=== PATIENT | male | born 1945 | race Caucasian/White ===

== ENCOUNTER 2020-06-10 08:44 | Day surgery (SDC) | payer MEDICARE, SELFPAY ==
--- NOTE | 2020-06-09 08:54 | P.CONAN_ITS ---
Documented by User: Jenny Alvarado 06/09/20 08:55 HPI - Anesthesia Eval Consult details Narrative: 75yo M for Colonoscopy [facility] Active Problems Active Problems: All Active Problems (Updated 05/22/20 @ 08:37 by Ta Mcneill [facility]) Dyslipidemia (Acute) Plantar fasciitis of right foot (Acute) Bilateral leg pain (Acute) Past Medical History Medical History Dyslipidemia Hypothyroid Prostate cancer Family History Family History Father Emphysema of lung Mother Lung cancer Surgical History Surgical History H/O prostate biopsy Hx of tonsillectomy Social History Social History Alcohol intake: current Alcohol intake frequency: holidays/special occasions only Smoking Status: Never smoker Use of substances other than those prescribed or required for medical reasons: No Advance Directives: No Advance Directives Information Provided: Yes Meds Allergies Allergy/AdvReac Type Severity Reaction Status Date / Time No Known Allergies Allergy Verified 05/22/20 09:41 [No Known Allergies*] Home Medications Medication Instructions Recorded Confirmed Last Taken Type atorvastatin 80 mg tablet 80 mg PO BEDTIME 12/27/19 05/22/20 Unknown History Exam Exam Date and Time: June 09, 2020 0854 Pertinent Lab Results Pertinent Lab Results: Laboratory Tests 11/29/19 08:24 Sodium 143 Potassium 4.7 Chloride 108 BUN 26 H Creatinine 1.11 Assessment and Plan Assessment Anesthesia Assessment: Chart Reviewed Documented by User: Deborah Lorenz 06/10/20 10:16 PMFSH Past Medical History Medical History Dyslipidemia Hypothyroid Prostate cancer Family History Family History Father Emphysema of lung Mother Lung cancer Family history of problems with anesthesia: No Surgical History Surgical History H/O prostate biopsy Hx of tonsillectomy History of Problems with Anesthesia: No Social History Social History Alcohol intake: current Alcohol intake frequency: holidays/special occasions only Smoking Status: Never smoker Use of substances other than those prescribed or required for medical reasons: No Advance Directives: No Advance Directives Information Provided: Yes Meds Allergies Allergy/AdvReac Type Severity Reaction Status Date / Time No Known Allergies Allergy Verified 05/22/20 09:41 [No Known Allergies*] Home Medications Medication Instructions Recorded Confirmed Last Taken Type atorvastatin 80 mg tablet 80 mg PO BEDTIME 12/27/19 05/22/20 Unknown History Exam Height,Weight and Vital Signs: Vital Signs Temp Pulse Resp BP Pulse Ox 06/10/20 09:49 97.0 F 74 16 144/64 H 97 Airway Mallampati Class: III TM Dist: >3cm Neck ROM: Full Heart: RRR Lungs: CTAB Assessment and Plan Assessment Anesthesia Assessment: Anesthesia Plan Discussed and Chart Reviewed Final Anesthetic Review NPO: Yes ASA Class: II Final Preanesthetic Review: No Changes in Pt Med Stat, Meds/Allgs Chart Reviewed, Consent Obtained/Reviewed and Anes Risks/Benef Reviewed Patient Risk: Low Procedure Risk: Low Assessment/Block/Sedation in SS: Assess/Block/Sedation-SS Anesthetic Plan Anesthetic Plan: MAC: Disposition: Standard PACU
[2020-06-09 12:26] VITALS: BMI 32.4
[2020-06-10 09:49] VITALS: BP 144/64; PULSE 74; RESP 16; TEMP 36.1; O2SAT 97
[2020-06-10] MEDS: Lactated Ringers 1,000 ML 100 ML IVCONT (09:59)
--- NOTE | 2020-06-10 10:38 | MHC.SHP ---
Pre-Procedural Eval Section A The patient is an INPATIENT: No Changes since office visit: No Cold of Flu in the past 2 weeks, No New Medical Problems, No Changes in Medication and No Patient answered all questions The History & Physical has been completed within 30 days and I have reviewed it.: Yes Section B Chief Complaint: bleeding Allergies: Allergies Allergy/AdvReac Type Severity Reaction Status Date / Time No Known Allergies Allergy Verified 05/22/20 09:41 [No Known Allergies*] Plan I have reviewed the history and physical and performed a pertinent physical examination on my patient. No changes have occurred unless specified.
[2020-06-10 11:05] VITALS: BP 94/63; PULSE 69; RESP 12; TEMP 36.9; O2SAT 97
--- NOTE | 2020-06-10 11:05 | PM.OP ---
Brief Operative Note Date of Service: 06/10/20 Pre-op diagnosis: rectal bleeding Post-op diagnosis: same (colon polyps, proctitis) Procedure: colonoscopy Surgeon: Edmund Bowman Anesthesia: MAC Estimated blood loss (mL): 5 Pathology: other (polypls x3, rectal biopsies) Condition: stable Disposition: PACU
[2020-06-10 11:20] VITALS: BP 118/63; PULSE 62; RESP 12; TEMP 36.9; O2SAT 98
--- NOTE | 2020-06-10 12:30 | OP_ITS ---
SURGEON: Edmund Bowman MD INDICATIONS: Rectal bleeding. PREOPERATIVE DIAGNOSIS: POSTOPERATIVE DIAGNOSIS: PROCEDURE PERFORMED: Colonoscopy to the terminal ileum with snare polypectomy and biopsy. ESTIMATED BLOOD LOSS: COMPLICATIONS: ANESTHESIA: ASSISTANTS: SPECIMENS: MEDICATIONS: Monitored anesthesia care. DESCRIPTION OF PROCEDURE: History and physical performed. The risks and benefits of the procedure were explained to the patient. Informed consent was obtained. The patient was placed in the left lateral decubitus position. A digital rectal exam was performed and was found to be normal. The Olympus pediatric video colonoscope was introduced into the rectum and advanced to the cecum without difficulty. The cecum was identified by transillumination, palpation, and identification of ileocecal valve. Examination was performed and the scope was removed. He tolerated the procedure well and was taken to recovery area in stable condition. FINDINGS: The terminal ileum was normal. The visualized colonic mucosa was normal. The quality of the prep was good. Three polyps were identified and removed with a snare. These were located at 80 cm, 70 cm, and 50 cm, none were greater than 10 mm. 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 Biopsies were obtained from the mucosa. Retroflexed examination was normal. IMPRESSION: 1. Colon polyps. 2. Radiation proctitis. RECOMMENDATIONS: Follow up the biopsy results. MD NAKITA Hinson/RAHEL / [id number]
== END 2020-06-10 11:39 | disposition home or self-care (01) ==
PROVIDERS: PCP Nurse Practitioner Family; Visit Provider Internal Medicine Gastroenterology
PROC: 0DJD8ZZ Inspection of Lower Intestinal Tract, Via Natural or Artificial Opening Endoscopic (ICD-10-PCS; CPT 45378; principal; 2020-06-10 09:50)
DX: K62.5 Hemorrhage of anus and rectum (principal); D12.4 Benign neoplasm of descending colon; D12.5 Benign neoplasm of sigmoid colon; K51.40 Inflammatory polyps of colon without complications; K62.7 Radiation proctitis; Z85.46 Personal history of malignant neoplasm of prostate; E03.9 Hypothyroidism, unspecified; Z79.899 Other long term (current) drug therapy
CPT/HCPCS: 45385; 45380; 88305

== ENCOUNTER 2020-06-20 06:59 | Outpatient (REF) | payer MEDICARE, SELFPAY ==
[2020-06-20 11:58] LABS: Alanine Aminotransferase 16 U/L (0-40); Albumin Level 3.6 g/dL (3.5-5.0); Alkaline Phosphatase 95 U/L (39-117); Anion Gap 13 (12-20); Aspartate Amino Transferase 18 U/L (5-37); Bilirubin Total < 0.2 mg/dL (0.0-1.0); Blood Urea Nitrogen 28 mg/dL (9-16); Calcium 8.1 mg/dL (8.4-10.2); Carbon Dioxide 24 mmol/L (22-29); Chloride 111 mmol/L (96-108); Cholesterol 109 mg/dL; Estimated Glomerular Filt Rate > 60; Glucose Fasting 85 mg/dL (60-99); HDL Cholesterol 30 mg/dL; LDL Cholesterol Calculated 61 mg/dl; Potassium 4.5 mmol/L (3.3-5.1); Sodium 143 mmol/L (135-145); Total Protein 5.8 g/dL (6.5-8.0); Triglycerides 91 mg/dL; Uric Acid 6.5 mg/dL (3.4-7.0)
[2020-06-20 12:07] LABS: TSH reflex Free T4 3.26 uIU/mL (0.32-4.0)
== END 2020-06-20 07:00 | disposition home or self-care (01) ==
LOC: HO.HMGCLDS 06:59
PROVIDERS: PCP Nurse Practitioner Family; Visit Provider Nurse Practitioner Family
DX: E03.9 Hypothyroidism, unspecified (principal); E78.5 Hyperlipidemia, unspecified; M72.2 Plantar fascial fibromatosis; M79.604 Pain in right leg; M79.605 Pain in left leg
CPT/HCPCS: 36415; 80053; 80061; 82550; 84443; 84550

== ENCOUNTER 2020-07-30 06:31 | Outpatient (REF) | payer MEDICARE, SELFPAY ==
[2020-07-30 12:02] LABS: Alanine Aminotransferase 20 U/L (0-40); Albumin Level 3.6 g/dL (3.5-5.0); Alkaline Phosphatase 117 U/L (39-117); Anion Gap 11 (12-20); Aspartate Amino Transferase 15 U/L (5-37); Bilirubin Total 0.3 mg/dL (0.0-1.0); Blood Urea Nitrogen 30 mg/dL (9-16); Calcium 8.7 mg/dL (8.4-10.2); Carbon Dioxide 24 mmol/L (22-29); Chloride 111 mmol/L (96-108); Estimated Glomerular Filt Rate > 60; Glucose Random 96 mg/dL (60-115); Potassium 4.4 mmol/L (3.3-5.1); Sodium 142 mmol/L (135-145); Total Protein 5.7 g/dL (6.5-8.0)
== END 2020-07-30 06:32 | disposition home or self-care (01) ==
LOC: HO.HMGCLDS 06:31
PROVIDERS: PCP Nurse Practitioner Family; Visit Provider Nurse Practitioner Family
DX: R74.8 Abnormal levels of other serum enzymes (principal)
CPT/HCPCS: 36415; 80053; 82550

== ENCOUNTER 2021-08-03 06:45 | Day surgery (SDC) | payer MEDICARE, SELFPAY ==
[2021-07-28 14:08] VITALS: BMI 29.8
[2021-07-28 14:17] VITALS: BMI 29.8
--- NOTE | 2021-07-31 08:58 | P.CONAN_ITS ---
Documented by User: Jenny Alvarado NP 07/31/21 09:00 HPI - Anesthesia Eval Consult details Narrative: 76yo M for Left Cataract Extraction IOL Insertion PCP cleared No previous cataract on record [facility] Active Problems Active Problems: All Active Problems (Updated 07/28/21 @ 16:47 by Ta Mcneill [facility]) Pre-op evaluation (Acute) Bilateral leg pain (Acute) Plantar fasciitis of right foot (Acute) Elevated CPK (Acute) Basal cell carcinoma (Acute) Encounter for annual wellness visit (AWV) in Medicare patient (Acute) Screening for colon cancer (Acute) Hypothyroid (Acute) Dyslipidemia (Acute) Past Medical History Medical History (Updated 07/28/21 @ 16:47 [facility] COVID-19 vaccine series completed Dyslipidemia GERD (gastroesophageal reflux disease) Hypothyroid Prostate cancer Family History Family History (Updated 05/27/21 @ 07:34 by Cary Tripp CMA) Father Emphysema of lung Mother Lung cancer Family history of problems with anesthesia: No Surgical History Surgical History (Updated 07/28/21 @ 13:58 by Britney Cadena RN) H/O colonoscopy H/O prostate biopsy Hx of tonsillectomy History of Problems with Anesthesia: No Social History Social History Housing: House Alcohol intake: current Alcohol intake frequency: a few times a month Patient Tobacco Use Status: Never used Tobacco e-Cigarette/Vaping Use: Never Used Second Hand Smoke Exposure: No Use of substances other than those prescribed or required for medical reasons: No Have you been hit, kicked, punched, or otherwise hurt by someone within the past year? If so, by whom?: No Are you DNR?: No Advance Directives: No Advance Directives Information Provided: Yes Advance Directives on File: No Recently lost weight without trying: No Eating poorly because of decreased appetite: No Nutrition Risks: No Nutritional Risk Poor oral hygiene: No Current occupational status: retired Cognitive needs: No Hearing needs: No Vision needs: No Meds Allergies Allergy/AdvReac Type Severity Reaction Status Date / Time No Known Allergies Allergy Verified 07/28/21 16:04 [No Known Allergies*] Exam Exam Date and Time: July 31, 2021 0858 Height,Weight and Vital Signs: Height 5 ft 9.5 in Weight 92.986 kg Assessment and Plan Assessment Anesthesia Assessment: Chart Reviewed Final Anesthetic Review Family History of Problems with Anesthesia: No History of Problems with Anesthesia: No Documented by User: Emigdio Meraz MD 08/03/21 07:37 [facility] Past Medical History Medical History (Updated 07/28/21 @ 16:47 by Ta Mcneill, [facility]) COVID-19 vaccine series completed Dyslipidemia GERD (gastroesophageal reflux disease) Hypothyroid Prostate cancer Family History Family History (Updated 05/27/21 @ 07:34 by Cary Tripp CMA) Father Emphysema of lung Mother Lung cancer Surgical History Surgical History (Updated 07/28/21 @ 13:58 by Britney Cadena RN) H/O colonoscopy H/O prostate biopsy Hx of tonsillectomy Social History Social History Housing: House Alcohol intake: current Alcohol intake frequency: a few times a month Patient Tobacco Use Status: Never used Tobacco e-Cigarette/Vaping Use: Never Used Second Hand Smoke Exposure: No Use of substances other than those prescribed or required for medical reasons: No Have you been hit, kicked, punched, or otherwise hurt by someone within the past year? If so, by whom?: No Are you DNR?: No Advance Directives: No Advance Directives Information Provided: Yes Advance Directives on File: No Recently lost weight without trying: No Eating poorly because of decreased appetite: No Nutrition Risks: No Nutritional Risk Poor oral hygiene: No Current occupational status: retired Cognitive needs: No Hearing needs: No Vision needs: No Meds Allergies Allergy/AdvReac Type Severity Reaction Status Date / Time No Known Allergies Allergy Verified 07/28/21 16:04 [No Known Allergies*] Exam Airway Mallampati Class: II TM Dist: >3cm Neck ROM: Full Loose/Missing/Broken Teeth: No Heart: rrr+[id number] Lungs: cta b/l Assessment and Plan Assessment Anesthesia Assessment: Anesthesia Plan Discussed Final Anesthetic Review NPO: Yes ASA Class: III Final Preanesthetic Review: No Changes in Pt Med Stat, Meds/Allgs Chart Reviewed, Consent Obtained/Reviewed and Anes Risks/Benef Reviewed Patient Risk: Intermediate Procedure Risk: Low Assessment/Block/Sedation in SS: Assess/Block/Sedation-SS Anesthetic Plan Anesthetic Plan: MAC: and Agree w/ Assess. and Plan Disposition: Standard PACU
[2021-08-03 07:13] VITALS: BP 124/64; PULSE 60; RESP 17; TEMP 36.1; O2SAT 99
[2021-08-03] MEDS: Tetracaine HCl/PF 0.5% Oph Sol 4 ML DROPS 1 DROP EYE-LEFT (07:19)
[2021-08-03] MEDS: Tropicamide 1 % Ophth Sol 3 ML BTL 1 DROP EYE-LEFT ×3 (07:19→07:25)
[2021-08-03] MEDS: Phenylephrine HCL 2.5% Oph SoL 2 ML BOTTLE 1 DROP EYE-LEFT ×3 (07:19→07:26)
[2021-08-03] MEDS: Lactated Ringers 500 ML 50 ML IV (07:45)
--- NOTE | 2021-08-03 08:19 | HO.PNOPHT ---
Ophthalmology Procedure Procedure Date of Service: 08/03/21 Ophthalmology Viscoelastic: Healwarren Corbettt Dual Pack Pro Ophthalmology Lenses: TECNIS CK1589 (19.5) Procedure Notes: PREOPERATIVE DIAGNOSIS: Decreased visual acuity left eye secondary to cataract POSTOPERATIVE DIAGNOSIS: Same PROCEDURE: Left cataract extraction with intraocular lens insertion SURGEON: Silvano Guy M.D. ANESTHESIA: Topical/MAC ESTIMATED BLOOD LOSS: None COMPLICATIONS: None After obtaining informed consent, the patient was brought to the operation room suite and placed in the supine position. After adequate sedation per anesthesia, topical drops of Tetracaine were given to the left eye. The eye was then prepped and draped in the usual sterile fashion. The operating room microscope was then positioned over the operative eye and a lid speculum placed. A paracentesis was created. Viscoelastic was then instilled into the anterior chamber. A three plane incision was then created temporally, utilizing a 2.85 mm keratome. Capsulotomy forceps were then utilized to create a circular tear capsulotomy. Hydrodissection and hydrodelineation were carried out until adequate mobilization of the nucleus occurred. Phacoemulsification was then utilized to remove the dense central nucleus followed by removal of the cortical material utilizing the automated aspiration irrigation unit. Viscoat elastic was instilled into the posterior capsular bag followed by placement of a posterior chamber intraocular lens without difficulty. The residual Viscoat elastic was then removed utilizing the automated IA machine. The wound was check and found to be watertight. The patient tolerated the procedure well and the lid speculum was removed. Intracameral injection of Vigamox 0.1 mL followed by a subtenon injection of Kenalog-40 0.2 mL were administered. The patient will be seen in the a.m.
[2021-08-03 08:45] VITALS: BP 134/59; PULSE 57; RESP 18; TEMP 36.4; O2SAT 97
== END 2021-08-03 08:51 | disposition home or self-care (01) ==
PROVIDERS: PCP Nurse Practitioner Family; Visit Provider Ophthalmology
PROC: (CPT 66985; principal; 2021-08-03 08:20)
DX: H25.12 Age-related nuclear cataract, left eye (principal); H52.4 Presbyopia; H40.013 Open angle with borderline findings, low risk, bilateral; E03.9 Hypothyroidism, unspecified; E78.00 Pure hypercholesterolemia, unspecified; K21.9 Gastro-esophageal reflux disease without esophagitis; Z79.899 Other long term (current) drug therapy
CPT/HCPCS: 66984; J2250; J3300; V2632

== ENCOUNTER 2022-10-29 06:51 | Outpatient (REF) | payer MEDICARE, SELFPAY ==
[2022-10-29 11:36] LABS: MANUAL DIFF FLAG NO
[2022-10-29 11:47] LABS: Appearance Urine Clear; Color Urine Yellow; Glucose Urine UA Negative (Negative); Leukocyte Esterase Urine Negative (Negative); Nitrite Urine Negative (Negative); PH 5.5 (5.0-9.0); Urine Blood Negative (Negative); Urine Ketones Trace mg/dL (Negative); Urine Protein Negative (Neg-Trace)
[2022-10-29 11:49] LABS: Basophils Percent Auto 0.5 % (0-2); Eosinophils Absolute Auto 0.2 X10*3/uL (0.0-0.4); Eosinophils Percent Auto 2.7 % (0-4); Hematocrit 38.9 % (42.0-52.0); Hemoglobin 13.1 g/dl (14.0-18.0); Imm Gran Abs Auto 0.04 X10*3/uL (0.00-0.03); Imm Gran Pct Auto 0.7 % (0.0-0.4); Lymphocytes Absolute Auto 1.3 X10*3/uL (1.2-4.9); Lymphocytes Percent Auto 23.8 % (20-40); Mean Corpuscular HGB Conc 33.7 g/dl (31.0-36.0); Mean Corpuscular Hemoglobin 31.6 pg (27.0-33.0); Mean Platelet Volume 10.5 fL (9.4-12.4); Monocytes Absolute Auto 0.5 X10*3/uL (0.1-1.2); Monocytes Percent Auto 9.6 % (2-11); Neutrophils Absolute Auto 3.5 x10*3/uL (2.0-8.3); Neutrophils Percent Auto 62.7 % (45-73); Platelet Count 209 X10*3/uL (160-400); Red Blood Count 4.14 X10*6/uL (4.60-5.80); Red Cell Distribution Width 12.4 % (11.0-16.0); White Blood Count 5.6 X10*3/uL (4.8-10.8)
[2022-10-29 12:14] LABS: Alanine Aminotransferase 21 U/L (0-40); Albumin Level 3.7 g/dL (3.5-5.0); Alkaline Phosphatase 90 U/L (39-117); Anion Gap 12 (12-20); Aspartate Amino Transferase 22 U/L (5-37); Bilirubin Total 0.6 mg/dL (0.0-1.0); Blood Urea Nitrogen 18 mg/dL (9-16); Calcium 9.5 mg/dL (8.4-10.2); Carbon Dioxide 26 mmol/L (22-29); Chloride 110 mmol/L (96-108); Cholesterol 119 mg/dL; Estimated Glomerular Filt Rate 57; Glucose Fasting 103 mg/dL (60-99); HDL Cholesterol 33 mg/dL; LDL Cholesterol Calculated 73 mg/dl; Potassium 4.6 mmol/L (3.3-5.1); Sodium 143 mmol/L (135-145); Total Protein 6.4 g/dL (6.5-8.0); Triglycerides 65 mg/dL
[2022-10-29 12:33] LABS: TSH reflex Free T4 2.74 uIU/mL (0.32-4.0)
== END 2022-10-29 06:52 | disposition home or self-care (01) ==
LOC: HO.HMGCLDS 06:51
PROVIDERS: PCP Nurse Practitioner Family; Visit Provider Nurse Practitioner Family
DX: E78.5 Hyperlipidemia, unspecified (principal)
CPT/HCPCS: 36415; 80053; 80061; 81003; 84443; 85025

== ENCOUNTER 2023-01-11 08:30 | Outpatient (AMB) | payer MEDICARE, SELFPAY ==
[2023-01-11 08:36] VITALS: BP 130/64; PULSE 70; O2SAT 97; BMI 31.4
--- NOTE | 2023-01-11 08:36 | A.OFFPC_ITS ---
Vital Signs 01/11/23 08:36 Height 5 ft 9.5 in Weight 216 lb BMI 31.4 BP 130/64 Blood Pressure Location Rt brachial Position Sitting Pulse 70 Pulse Source Pulse Oximeter Pulse Oximetry (%) 97 Oxygen Delivery Method Room Air Intake Visit Reasons: 6 month follow up dyslipidemia/hypothyroidism Intake Note: Pt is here today for his 6mo. f/u Allergies No Known Allergies [No Known Allergies*] Allergy (Verified 01/11/23 08:36) Medication List - Last Reconciled 01/11/23 by SWATI Stallworth atorvastatin 80 mg PO BEDTIME coenzyme [id number] E 50-5 mg-unit 1 cap PO DAILY 90 days ibuprofen 600 mg PO Q8H PRN 90 days levothyroxine 50 mcg PO DAILY tamsulosin 0.4 mg PO DAILY 90 days Tobacco use date assessed: 01/11/23 Fall risk assessment: No Falls in past year Last assessed Fall Risk: 01/11/23 Dental Screening Dental Screen Date: 01/11/23 Did you have a dental visit in the last 12 months?: Yes Did you have a dental problem in the last 6 months where you did not have access to dental care?: No Was dental information given to patient?: Patient has dentist HPI 6 month follow up dyslipidemia/hypothyroidism HPI Details Anemia noted on last labs. Pt denies any dizziness, hematuria, and blood in stool. Repeat labs have been ordered. Dyslipidemia: On atorvastatin 80mg. Cholesterol is improving. [facility] Medical History COVID-19 vaccine series completed GERD (gastroesophageal reflux disease) Prostate cancer Dyslipidemia Hypothyroid Surgical History H/O colonoscopy Hx of tonsillectomy H/O prostate biopsy Family History Father Emphysema of lung Mother Lung cancer Social History Housing: House Alcohol intake: current Alcohol intake frequency: a few times a month Patient Tobacco Use Status: Never used Tobacco e-Cigarette/Vaping Use: Never Used Second Hand Smoke Exposure: No Current occupational status: retired Cognitive needs: No Hearing needs: No Vision needs: No Questionnaire PHQ-9 Over the last 2 weeks, how often have you been bothered by any of the following problems? 1. Little interest or pleasure in doing things: not at all 2. Feeling down, depressed, or hopeless: not at all 3. Trouble falling or staying asleep, or sleeping too much: not at all 4. Feeling tired or having little energy: not at all 5. Poor appetite or overeating: not at all 6. Feeling bad about yourself - or that you are a failure or have let yourself or your family down: not at all 7. Trouble concentrating on things, such as reading the newspaper or watching television: not at all 8. Moving or speaking so slowly that other people could have noticed. Or the opposite - being so fidgety or restless that you have been moving around a lot more than usual: not at all 9. Thoughts that you would be better off or of hurting yourself in some way: not at all Total score: 0 Source: Developed by Drs. Luis Enrique Vides, Miriam Siu, Neo Yu and colleagues, with an educational jalen from [employer]. Thrive Questionnaire Date Thrive assessed: 01/11/23 I am a: Patient What is your living situation today?: I have a steady place to live Within the past 12 months, did the food you bought not last and you didn't have the money to get more?: Never true Within the past 12 months, did you worry whether your food would run out before you got money to buy more?: Never true Do you have trouble paying for medicines?: No Do you have trouble getting transportation to medical appointments?: No Do you have trouble paying your heating and electricity bill?: No Do you have trouble taking care of your child, family member or friend?: No Do you have trouble with day-to-day activities such as bathing, preparing meals, shopping, managing finances, etc.?: No Are you currently unemployed and looking for a job?: No Are you interested in more education?: No AUDIT C Alcohol Use Questionnaire (AUDIT-C) 1. How often do you have a drink containing alcohol?: Monthly or less 2. How many drinks containing alcohol do you have on a typical day when you are drinking?: 1 or 2 3. How often do you have six or more drinks on one occasion?: Never Total Score: 1 GINA-7 AMB Questionnaire GINA-7 Date GINA - 7 assessed: 01/11/23 Feeling nervous, anxious, or on edge: 0 = Not at all Not being able to stop or control worryin = Not at all Worrying too much about different things: 0 = Not at all Trouble relaxin = Not at all Being so restless that it is hard to sit still: 0 = Not at all Becoming easily annoyed or irritable: 0 = Not at all Feeling afraid as if something awful might happen: 0 = Not at all Total GINA-7 score (0-4 normal; 5-9 mild; 10-14 moderate; 15-21 severe): 0 Source: Developed by Drs. Luis Enrique Vides, Miriam Siu, Neo Yu and colleagues, with an educational jalen from [employer]. Review of Systems Const Reports as per HPI Physical exam (Primary Care) Vital Signs: Last Vital Signs Pulse 70 01/11/23 08:36 BP 130/64 01/11/23 08:36 Pulse Ox 97 01/11/23 08:36 Oxygen Delivery Method Room Air 01/11/23 08:36 BMI result Body Mass Index 31.4 Tobacco/Smoking Status: Tobacco use Status Tobacco use date assessed 01/11/23 01/11/23 08:36 Patient Tobacco Use Status Never used Tobacco 01/11/23 08:36 e-Cigarette/Vaping Use Never Used 01/11/23 08:36 PHQ-9: PHQ-9 Score PHQ-9: Total score 0 01/11/23 08:45 Thrive Assessment: Date of Thrive Assessment Date Thrive assessed 01/11/23 01/11/23 08:40 Const General: cooperative Nutritional Appearance: obese Orientation/consciousness: patient oriented x3 Resp Effort & Inspection: normal respiratory effort Auscultation: clear to auscultation bilaterally Cardio Rate: regular rate Rhythm: regular rhythm Heart sounds: S1 normal heart sound present and S2 normal heart sound present Neuro General: patient oriented x3 Extrem Other: no edema Psych Appearance: grossly normal Mental Status: mental status grossly normal Speech and movement: Normal speech and movement present Affect: normal affect Attitude: cooperative Thought process: Normal thought process present Thought content: Normal thought content present Insight: Good insight present (Psych) Judgement: Good judgement present (Psych) Assessment and Plan Assessment & Plan (1) Anemia: Code(s): D64.9 - Anemia, unspecified (2) Dyslipidemia: Code(s): E78.5 - Hyperlipidemia, unspecified Plan The patient agreed to the use of a medical unit secretary for this encounter. Scribed for SWATI Silvestre by Scarlet Shbaazz medical unit secretary, on 01/11/2023 at 08:45 EST Medications: Refilled atorvastatin 80 mg PO BEDTIME 90 tabs 1RF Coding Level of Care Code Est Pt Level 3 (78404) Diagnoses Anemia D64.9 Dyslipidemia E78.5
== END 2023-01-11 09:02 | disposition home or self-care (01) ==
PROVIDERS: Visit Provider Nurse Practitioner Family
DX: D64.9 Anemia, unspecified (principal); E78.5 Hyperlipidemia, unspecified
CPT/HCPCS: 99213

== ENCOUNTER 2023-01-12 07:04 | Outpatient (REF) | payer MEDICARE, SELFPAY ==
[2023-01-12 11:43] LABS: MANUAL DIFF FLAG NO
[2023-01-12 12:20] LABS: Basophils Percent Auto 0.5 % (0-2); Eosinophils Absolute Auto 0.2 X10*3/uL (0.0-0.4); Eosinophils Percent Auto 3.5 % (0-4); Hematocrit 39.3 % (42.0-52.0); Hemoglobin 13.3 g/dl (14.0-18.0); Imm Gran Abs Auto 0.03 X10*3/uL (0.00-0.03); Imm Gran Pct Auto 0.5 % (0.0-0.4); Lymphocytes Absolute Auto 1.5 X10*3/uL (1.2-4.9); Lymphocytes Percent Auto 26.3 % (20-40); Mean Corpuscular HGB Conc 33.8 g/dl (31.0-36.0); Mean Corpuscular Hemoglobin 31.9 pg (27.0-33.0); Mean Corpuscular Volume 94.2 fL (80.0-98.0); Mean Platelet Volume 10.8 fL (9.4-12.4); Monocytes Absolute Auto 0.5 X10*3/uL (0.1-1.2); Monocytes Percent Auto 7.8 % (2-11); Neutrophils Absolute Auto 3.5 x10*3/uL (2.0-8.3); Neutrophils Percent Auto 61.4 % (45-73); Platelet Count 217 X10*3/uL (160-400); Red Blood Count 4.17 X10*6/uL (4.60-5.80); Red Cell Distribution Width 12.8 % (11.0-16.0); White Blood Count 5.8 X10*3/uL (4.8-10.8)
[2023-01-12 12:51] LABS: Alanine Aminotransferase 22 U/L (0-40); Albumin Level 3.5 g/dL (3.5-5.0); Alkaline Phosphatase 76 U/L (39-117); Anion Gap 11 (12-20); Aspartate Amino Transferase 21 U/L (5-37); Bilirubin Total 0.5 mg/dL (0.0-1.0); Blood Urea Nitrogen 22 mg/dL (9-16); Calcium 8.6 mg/dL (8.4-10.2); Carbon Dioxide 23 mmol/L (22-29); Chloride 111 mmol/L (96-108); Estimated Glomerular Filt Rate > 60; Glucose Random 128 mg/dL (60-115); Iron 88 mcg/dL (45-160); Percent Iron Saturation 30 % (15-50); Potassium 3.9 mmol/L (3.3-5.1); Sodium 141 mmol/L (135-145); Total Iron Binding Capacity 291 mcg/dL (228-428); Total Protein 6.1 g/dL (6.5-8.0); Unsaturated Iron Binding 203 ug/dL
[2023-01-12 12:54] LABS: Ferritin 64 ng/mL (20-250)
[2023-01-12 13:00] LABS: Folate 14.3 ng/mL (> or = 4.0); Vitamin B12 242 pg/mL (200-900)
[2023-01-17 15:37] LABS: Hemoglobin 13.2 g/dL (13.2-17.1); MCH 32.4 pg (27.0-33.0); MCV 93.1 fL (80.0-100.0); RBC 4.08 Million/uL (4.20-5.80); RDW 12.8 % (11.0-15.0)
== END 2023-01-12 07:05 | disposition home or self-care (01) ==
LOC: HO.HMGCLDS 07:04
PROVIDERS: PCP Nurse Practitioner Family; Visit Provider Nurse Practitioner Family
DX: D64.9 Anemia, unspecified (principal)
CPT/HCPCS: 36415; 80053; 82607; 82728; 82746; 83020; 83540; 85014; 85018; 85025; 85041

== ENCOUNTER 2023-03-22 08:54 | Outpatient (AMB) | payer MEDICARE, SELFPAY ==
[2023-03-22 09:16] VITALS: BP 118/70; PULSE 58; O2SAT 99; BMI 31.4
--- NOTE | 2023-03-22 09:16 | AM.OFFVISMDC ---
Intake Vital Signs 03/22/23 09:16 Height 5 ft 9.5 in Weight 216 lb BMI 31.4 BP 118/70 Blood Pressure Location Rt brachial Position Sitting Pulse 58 Pulse Source Pulse Oximeter Pulse Oximetry (%) 99 Oxygen Delivery Method Room Air Intake Visit Reasons: SWV G0439 Intake Note: Pt is here today for his SWV Allergies No Known Allergies [No Known Allergies*] Allergy (Verified 03/22/23 11:31) Medication List - Last Reconciled 03/22/23 by SWATI Stallworth atorvastatin 80 mg PO BEDTIME coenzyme [id number] E 50-5 mg-unit 1 cap PO DAILY 90 days ibuprofen 600 mg PO Q8H PRN 90 days levothyroxine 50 mcg PO DAILY tamsulosin 0.4 mg PO DAILY 90 days HPI SWV G0439 HPI Details here for SWV. PPP in scan pile, [place] in scan pile. PFSH Medical History COVID-19 vaccine series completed GERD (gastroesophageal reflux disease) Prostate cancer Dyslipidemia Hypothyroid Surgical History H/O colonoscopy Hx of tonsillectomy H/O prostate biopsy Family History Father Emphysema of lung Mother Lung cancer Social History Housing: House Alcohol intake: current Alcohol intake frequency: a few times a month Patient Tobacco Use Status: Never used Tobacco e-Cigarette/Vaping Use: Never Used Second Hand Smoke Exposure: No Current occupational status: retired Cognitive needs: No Hearing needs: No Vision needs: No Questionnaire Medicare Wellness Checkup [age] What gender do you identify with?: male During the past 4 weeks, how much have you been bothered by emotional problems such as feeling anxious, depressed, irritable, sad or downhearted, and blue?: not at all During the past 4 weeks, has your physical & emotional health limited your social activities with family, friends, neighbors, or groups?: not at all During the past 4 weeks, how much bodily pain have you generally had?: no pain During the past 4 weeks, was someone available to help you if you needed & wanted help?: yes, as much as I wanted During the past 4 weeks, what was the hardest physical activity you could do for at least 2 minutes?: very heavy Can you get to places out of walking distance without help? (For eg., can you travel alone on buses, taxis or drive your car?): Yes Can you go shopping for groceries or clothes without someone's help?: Yes Can you prepare your own meals?: Yes Can you do your housework without help?: Yes Because of any health problems, do you need the help of another person with your personal care needs such as eating, bathing, dressing or getting around the house?: No Can you handle your own money without help?: Yes During the past 4 weeks, how would you rate your health in general?: excellent During the past 4 weeks how have things been going for you?: very well; could hardly better Are you having difficulties driving your car?: no Do you always fasten your seat belt when you are in a car?: yes, usually During past 4 weeks, have you been bothered by the following: never: Falling or dizzy when standing up, Trouble eating well?, Teeth or denture problems? and Problems using the telephone? and seldom: Sexual problems? and Tiredness or fatigue? Have you fallen 2 or more times in the past year?: No Are you afraid of falling?: No Are you a smoker?: no During the past 4 weeks, how many drinks of wine, beer, or other alcoholic beverages did you have?: 1 drink or less per week Do you exercise for about 20 minutes 3 or more times a week?: yes, some of the time Have you been given information to help with the following?: no: Hazards in your house that might hurt you? and no: Keeping track of your medications? How often do you have trouble taking medicines the way you have been told to take them?: I always take medicine as prescribed How confident are you that you can control & manage most of your health problems?: very confident What is your race?: White Mini Mental State Exam (MMSE) Orientation What is the (year) (season) (date) (day) (month)?: year Where are we (state) (county) (town or city) (hospital) (floor)?: state Registration Name of 3 unrelated objects clearly and slowly, then ask patient to repeat all 3 of them. (1st repeat determines score. Make sure they can repeat all three): object 1, object 2 and object 3 Attention & Calculation (CHOOSE ONE) Spell WORLD backwards (DLROW): 5 letters Recall Ask patient to repeat the 3 items from question #3.: object 1, object 2 and object 3 Language Show patient a wristwatch & ask what it is. Repeat for pencil.: watch and pencil Ask the patient to repeat the phrase 'No ifs, ands, or buts' after you.: correct Ask the patient to 'take a piece of paper with their right hand' 'fold paper in half' 'place paper on floor': take paper in right hand, fold paper in half and place paper on floor Print the sentence 'CLOSE YOUR EYES' on a piece. If patient actually closes eyes then score.: followed written direction Give patient a blank piece of paper & ask to write a sentence. Score if it contains a noun & verb.: sentence contains subject and verb Ask patient to copy figure of intersecting pentagons exactly. Score if all 10 angles & 2 intersects are included.: all 10 angles present & 2 are intersected Score Score: 22 Activity of Daily Living Bathing - sponge bath, tub bath or shower: receives no assistance (gets in/out by self, if usual bathing means Dressing - getting clothes from closets & drawers, including inner/outer garments & fasteners.: gets clothes & gets completely dressed without help Toileting - going to the 'toilet room' for urine/bowel elimination & cleaning self/arranging clothes: goes to toilet room, cleans self, arranges clothes without help Transfer: moves in & out of bed and chair without help (may use support object) Continence: controls urination/bowel movements completely by self Feeding: feeds self without help Total Score: 0 Information obtained from: patient Using telephone: independent Traveling: independent Shopping: independent Preparing meals: independent Housework: independent Taking medicine: independent Managing money: independent PHQ-9 Over the last 2 weeks, how often have you been bothered by any of the following problems? 1. Little interest or pleasure in doing things: not at all 2. Feeling down, depressed, or hopeless: not at all 3. Trouble falling or staying asleep, or sleeping too much: not at all 4. Feeling tired or having little energy: not at all 5. Poor appetite or overeating: not at all 6. Feeling bad about yourself - or that you are a failure or have let yourself or your family down: not at all 7. Trouble concentrating on things, such as reading the newspaper or watching television: not at all 8. Moving or speaking so slowly that other people could have noticed. Or the opposite - being so fidgety or restless that you have been moving around a lot more than usual: not at all 9. Thoughts that you would be better off or of hurting yourself in some way: not at all Total score: 0 Depression Screening Interpretation: Negative Depression Screening Done: Yes 88501 - PHQ-9 Billing: Yes Source: Developed by Drs. Luis Enrique Vides, Miriam Siu, Neo Yu and colleagues, with an educational jalen from [employer]. Review of Systems Neuro Details: able to stand from sitting position, able to tandem walk, whisper test performed, neg rhomberg Physical Exam Vital Signs: Last Vital Signs Pulse 58 03/22/23 09:16 BP 118/70 03/22/23 09:16 Pulse Ox 99 03/22/23 09:16 Oxygen Delivery Method Room Air 03/22/23 09:16 BMI result Body Mass Index 31.4 Assessment & Plan Assessment & Plan (1) Medicare annual wellness visit, subsequent: Code(s): Z00.00 - Encounter for general adult medical examination without abnormal findings Plan: follow up in 6 months Orders: Orders UA CC w/rflx Micro + Cult 5 Months E03.9 - Hypothyroidism, unspecified, E78.5 - Hyperlipidemia, unspecified Lipid Panel 5 Months E03.9 - Hypothyroidism, unspecified, E78.5 - Hyperlipidemia, unspecified Complete Blood Count Auto Diff 5 Months E03.9 - Hypothyroidism, unspecified, E78.5 - Hyperlipidemia, unspecified Comprehensive [place]. Panel Fast 5 Months E03.9 - Hypothyroidism, unspecified, E78.5 - Hyperlipidemia, unspecified TSH reflex Free T4 5 Months E03.9 - Hypothyroidism, unspecified, E78.5 - Hyperlipidemia, unspecified Medications: Refilled tamsulosin 0.4 mg PO DAILY 90 days 90 caps 1RF Quality Reporting (2019) Depression/Bipolar (159/160/161/177) PHQ-9: Total score: 0 Coding Level of Care Code Medicare Subsequent (G0439) Diagnoses Medicare annual wellness visit, subsequent Z00.00 CPT Codes Advance Care Planning - Time spent: 1-15 minutes, not on file ([id number]) Advance Care Planning Forms completed: Health Care Proxy (form given to pt), MOLST (form given to pt to fill out) and Living will (filled out with wildland fire fighter specialist) Time spent: 1-15 minutes, not on file Actual minutes spent: 15 Did not discuss due to Cultural/Spiritual beliefs: No
== END 2023-03-22 10:30 | disposition home or self-care (01) ==
PROVIDERS: Visit Provider Nurse Practitioner Family
DX: Z00.00 Encounter for general adult medical examination without abnormal findings (principal)
CPT/HCPCS: 1124F; G0439

== ENCOUNTER 2023-05-25 07:59 | Outpatient (AMB) | payer MEDICARE, SELFPAY ==
[2023-05-25 08:03] VITALS: BP 122/64; PULSE 83; TEMP 36.8; O2SAT 94; BMI 31.4
--- NOTE | 2023-05-25 08:07 | AM.OFFWIN_ITS ---
Intake Vital Signs 05/25/23 08:03 Height 5 ft 9.5 in Weight 216 lb BMI 31.4 BP 122/64 Blood Pressure Location Lt brachial Position Sitting Pulse 83 Pulse Source Pulse Oximeter Temp 98.2 F Temp Source Oral Pulse Oximetry (%) 94 Oxygen Delivery Method Room Air Intake Visit Reasons: EST/cough and congestion (lobby masked) Patient Tobacco Use Status: Never used Tobacco Allergies No Known Allergies [No Known Allergies*] Allergy (Verified 05/25/23 08:07) HPI HPI Comments History of Present Illness Details Patient is a 78yo M who presents with persistent cough He said he retutned from [place] 4 weeks ago with cold His cough has persisted and worsened yesterday He said initially had congestion, and dry cough He said congestion improving and no sinus pressure, ear pain or ST Denies fevers States was raking yesterday and + fatigue, worsening cough Denies CP or SOB with activity or rest No improvement of symptoms with time He has taken covid tests which are negative PFSH Medical History COVID-19 vaccine series completed GERD (gastroesophageal reflux disease) Prostate cancer Dyslipidemia Hypothyroid Surgical History H/O colonoscopy Hx of tonsillectomy H/O prostate biopsy Family History Father Emphysema of lung Mother Lung cancer Social History Housing: House Alcohol intake: current Alcohol intake frequency: a few times a month Patient Tobacco Use Status: Never used Tobacco e-Cigarette/Vaping Use: Never Used Second Hand Smoke Exposure: No Current occupational status: retired Cognitive needs: No Hearing needs: No Vision needs: No Review of Systems Const Denies body aches, Reports chills (he said chronic post tx for prostate ca 5 years ago; gets hot flashes), Reports fatigue, Denies fever(s) and Denies headache(s) Eyes Denies blurry vision ENT Denies dizziness, Denies otalgia, Denies headache(s), Reports nasal congestion, Reports nasal discharge, Denies sore throat and Denies throat swelling Card Denies chest pain, Denies rapid heart rate and Denies dyspnea Resp Denies change in phlegm color, Reports chest congestion, Reports cough, Denies excessive phlegm production, Denies pain on inspiration, Denies pain with cough and Denies dyspnea Musc Denies myalgias Neuro Denies dizziness, Denies headache(s) and Denies lack of coordination Endo Reports fatigue Aller/Immun Denies throat swelling Physical Exam Vital Signs: Last Vital Signs Temp 98.2 F 05/25/23 08:03 Pulse 83 05/25/23 08:03 BP 122/64 05/25/23 08:03 Pulse Ox 94 05/25/23 08:03 Oxygen Delivery Method Room Air 05/25/23 08:03 BMI result Body Mass Index 31.4 General: Non-toxic, NAD. Speaking full sentences. Skin: Warm dry throughout Eye: EOMI HENT: Airway patent. Uvula midline. No pharyngeal erythema or edema. No CLASSIFIED ADVERTISING SUPERVISOR. Bilateral canals clear. TM non-erythematous, non-bulging. No TM perforation or hemotympanum noted. Respiratory: CTA bilaterally. No wheezes, rales or rhonchi Cardiac: RRR. No murmur MSK: Full ROM extremities. Neurology: A/O. No aphasia or facial droop. Gait without abnormality Psych: Good mood and affect Assessment & Plan Assessment & Plan (1) Persistent cough: Code(s): R05.3 - Chronic cough Plan: Patient seen and evaluated. O2 has changes from previous visit but pt denies feeling winded with activity His lungs were clear but concern waling PNA due to time period and symptoms He will take tessalon and azithromycin as prescribed We discussed s/s that warrant call to office like fever or worsening cough We discussed ER symptoms like SOB, dizziness, CP and pt aware Patient gave verbal understanding and had no additional questions or concerns at time of discharge All questions answered Medications: New benzonatate 200 mg PO BID-TID PRN 14 caps 0RF cough azithromycin start on day 2 of therapy 250 mg PO DAILY 6 days 6 tabs 0RF Coding Level of Care Code Est Pt Level 3 (26981) Diagnoses Persistent cough R05.3
== END 2023-05-25 08:38 | disposition home or self-care (01) ==
PROVIDERS: PCP Nurse Practitioner Family; Visit Provider Physician Assistant
DX: R05.3 Chronic cough (principal)
CPT/HCPCS: 99213

== ENCOUNTER 2023-07-15 06:05 | Outpatient (REF) | payer MEDICARE, SELFPAY ==
[2023-07-15 10:25] LABS: MANUAL DIFF FLAG NO
[2023-07-15 10:32] LABS: Appearance Urine Clear; Color Urine Yellow; Glucose Urine UA Negative (Negative); Leukocyte Esterase Urine Negative (Negative); Nitrite Urine Negative (Negative); PH 5.5 (5.0-9.0); Urine Blood Negative (Negative); Urine Ketones Negative (Negative); Urine Protein Negative (Neg-Trace)
[2023-07-15 10:34] LABS: Basophils Percent Auto 0.3 % (0-2); Eosinophils Absolute Auto 0.2 X10*3/uL (0.0-0.4); Eosinophils Percent Auto 2.8 % (0-4); Hematocrit 38.5 % (42.0-52.0); Hemoglobin 13.1 g/dl (14.0-18.0); Imm Gran Abs Auto 0.02 X10*3/uL (0.00-0.03); Imm Gran Pct Auto 0.3 % (0.0-0.4); Lymphocytes Absolute Auto 1.4 X10*3/uL (1.2-4.9); Lymphocytes Percent Auto 22.4 % (20-40); Mean Corpuscular Hemoglobin 32.3 pg (27.0-33.0); Mean Corpuscular Volume 95.1 fL (80.0-98.0); Mean Platelet Volume 11.1 fL (9.4-12.4); Monocytes Absolute Auto 0.7 X10*3/uL (0.1-1.2); Monocytes Percent Auto 10.9 % (2-11); Neutrophils Percent Auto 63.3 % (45-73); Platelet Count 226 X10*3/uL (160-400); Red Blood Count 4.05 X10*6/uL (4.60-5.80); Red Cell Distribution Width 13.1 % (11.0-16.0); White Blood Count 6.3 X10*3/uL (4.8-10.8)
[2023-07-15 11:09] LABS: Alanine Aminotransferase 26 U/L (0-40); Albumin Level 3.6 g/dL (3.5-5.0); Alkaline Phosphatase 95 U/L (39-117); Anion Gap 10 (12-20); Aspartate Amino Transferase 24 U/L (5-37); Bilirubin Total 0.4 mg/dL (0.0-1.0); Blood Urea Nitrogen 21 mg/dL (9-16); Calcium 8.7 mg/dL (8.4-10.2); Carbon Dioxide 24 mmol/L (22-29); Chloride 111 mmol/L (96-108); Cholesterol 95 mg/dL (<200); Estimated Glomerular Filt Rate > 60; Glucose Fasting 100 mg/dL (60-99); HDL Cholesterol 29 mg/dL (>40); LDL Cholesterol Calculated 52 mg/dL (<100); Potassium 4.3 mmol/L (3.3-5.1); Sodium 141 mmol/L (135-145); Total Protein 6.2 g/dL (6.5-8.0); Triglycerides 70 mg/dL (<150)
== END 2023-07-15 06:06 | disposition home or self-care (01) ==
LOC: HO.HMGCLDS 06:05
PROVIDERS: PCP Nurse Practitioner Family; Visit Provider Nurse Practitioner Family
DX: E78.5 Hyperlipidemia, unspecified (principal); E03.9 Hypothyroidism, unspecified
CPT/HCPCS: 36415; 80053; 80061; 81003; 84443; 85025

== ENCOUNTER 2023-07-18 08:26 | Outpatient (AMB) | payer MEDICARE, SELFPAY ==
--- NOTE | 2023-07-18 08:32 | A.OFFPC_ITS ---
Vital Signs 07/18/23 08:33 Height 5 ft 9.5 in Weight 216 lb BMI 31.4 BP 120/70 Blood Pressure Location Rt brachial Position Sitting Pulse 63 Pulse Source Pulse Oximeter Pulse Oximetry (%) 98 Oxygen Delivery Method Room Air Intake Visit Reasons: 3 month f/u with labs Intake Note: Patient here to discuss labs. Allergies No Known Allergies [No Known Allergies*] Allergy (Verified 07/18/23 08:34) Medication List - Last Reconciled 07/18/23 by SWATI Stallworth atorvastatin 80 mg PO BEDTIME coenzyme [id number]-ulsdaee E 50-5 mg-unit 1 cap PO DAILY 90 days ibuprofen 600 mg PO Q8H PRN 90 days levothyroxine 50 mcg PO DAILY tamsulosin 0.4 mg PO DAILY 90 days Tobacco use date assessed: 07/18/23 Fall risk assessment: No Falls in past year Last assessed Fall Risk: 07/18/23 Dental Screening Dental Screen Date: 07/18/23 Did you have a dental visit in the last 12 months?: No Did you have a dental problem in the last 6 months where you did not have access to dental care?: No Was dental information given to patient?: Patient has dentist HPI 3 month f/u with labs HPI Details Dyslipidemia: On atorvastatin 80mg. Pt is doing well on this med. Will order labs. Denies chest pain, shortness of breath, and dizziness. PFSH Medical History COVID-19 vaccine series completed GERD (gastroesophageal reflux disease) Prostate cancer Dyslipidemia Hypothyroid Surgical History H/O colonoscopy Hx of tonsillectomy H/O prostate biopsy Family History Father Emphysema of lung Mother Lung cancer Social History Housing: House Alcohol intake: current Alcohol intake frequency: a few times a month Patient Tobacco Use Status: Never used Tobacco e-Cigarette/Vaping Use: Never Used Second Hand Smoke Exposure: No Current occupational status: retired Cognitive needs: No Hearing needs: No Vision needs: No Questionnaire Thrive Questionnaire Date Thrive assessed: 01/11/23 AUDIT C Alcohol Use Questionnaire (AUDIT-C) 1. How often do you have a drink containing alcohol?: 2-4 times a month 2. How many drinks containing alcohol do you have on a typical day when you are drinking?: 1 or 2 3. How often do you have six or more drinks on one occasion?: Never Total Score: 2 Score Reviewed/Action Taken: No GINA-7 AMB Questionnaire GINA-7 Date GINA - 7 assessed: 01/11/23 Source: Developed by Drs. Luis Enrique Vides, Miriam Siu, Neo Yu and colleagues, with an educational jalen from [employer]. Review of Systems Const Reports as per HPI Physical exam (Primary Care) Vital Signs: Last Vital Signs Pulse 63 07/18/23 08:33 BP 120/70 07/18/23 08:33 Pulse Ox 98 07/18/23 08:33 Oxygen Delivery Method Room Air 07/18/23 08:33 BMI result Body Mass Index 31.4 Tobacco/Smoking Status: Tobacco use Status Tobacco use date assessed 07/18/23 07/18/23 08:36 Patient Tobacco Use Status Never used Tobacco 07/18/23 08:33 e-Cigarette/Vaping Use Never Used 07/18/23 08:33 Thrive Assessment: Date of Thrive Assessment Date Thrive assessed 01/11/23 07/18/23 08:33 Const General: cooperative Nutritional Appearance: obese Orientation/consciousness: patient oriented x3 Resp Effort & Inspection: normal respiratory effort Auscultation: clear to auscultation bilaterally Cardio Rate: regular rate Rhythm: regular rhythm Heart sounds: S1 normal heart sound present and S2 normal heart sound present Neuro General: patient oriented x3 Extrem Right lower extremity: no edema Left lower extremity: no edema Psych Appearance: grossly normal Mental Status: mental status grossly normal Speech and movement: Normal speech and movement present Affect: normal affect Attitude: cooperative Thought process: Normal thought process present Thought content: Normal thought content present Insight: Good insight present (Psych) Judgement: Good judgement present (Psych) Assessment and Plan Assessment & Plan (1) Dyslipidemia: Code(s): E78.5 - Hyperlipidemia, unspecified Plan: Continue atorvastatin Plan The patient agreed to the use of a medical review coordinator for this encounter. Scribed for Ta Mcneill, TRAFFIC DIVISION COMMANDING OFFICER- by Scarlet Shabazz, medical review coordinator, on 07/18/2023 at 08:50 EST. Orders: Orders Complete Blood Count Auto Diff Today E78.5 - Hyperlipidemia, unspecified UA CC w/rflx Micro + Cult Today E78.5 - Hyperlipidemia, unspecified Comprehensive [place]. Panel Fast Today E78.5 - Hyperlipidemia, unspecified TSH reflex Free T4 Today E78.5 - Hyperlipidemia, unspecified Lipid Panel Today E78.5 - Hyperlipidemia, unspecified Medications: Refilled atorvastatin 80 mg PO BEDTIME 90 tabs 1RF Coding Level of Care Code Est Pt Level 3 (57804) Diagnoses Dyslipidemia E78.5
[2023-07-18 08:33] VITALS: BP 120/70; PULSE 63; O2SAT 98; BMI 31.4
== END 2023-07-18 10:43 | disposition home or self-care (01) ==
PROVIDERS: PCP Nurse Practitioner Family; Visit Provider Nurse Practitioner Family
DX: E78.5 Hyperlipidemia, unspecified (principal)
CPT/HCPCS: 99213

== ENCOUNTER 2024-02-03 08:03 | Outpatient (AMB) | payer MEDICARE, SELFPAY ==
[2024-02-03 08:03] VITALS: BP 128/72; PULSE 86; O2SAT 96; BMI 31.4
--- NOTE | 2024-02-03 08:03 | MHC.OFFWIV ---
Intake Vital Signs 02/03/24 08:03 Height 5 ft 9.5 in Weight 216 lb BMI 31.4 BP 128/72 Blood Pressure Location Rt brachial Position Sitting Pulse 86 Pulse Source Pulse Oximeter Pulse Oximetry (%) 96 Oxygen Delivery Method Room Air Intake Visit Reasons: EP RT shoulder/arm pain, lt wrist, arthritis? Intake Note: pt is here for right shoulder and arm pain, questioning arthritis Patient Tobacco Use Status: Never used Tobacco Allergies No Known Allergies [No Known Allergies*] Allergy (Verified 02/03/24 08:04) Do you need a note to return to daycare/school/sports/work: No HPI HPI Comments History of Present Illness Details 78 y/o male patient who presents to the walk in clinic with c/o multiple joint pain. Pt reports ~ 4-5 weeks he has been waking up in the morning with right shoulder/arm/left shoulder and arm pain. Also c/o lower extremities pain. He has been taking Ibuprofen with good relief. He thinks he might have Arthritis. [facility] Medical History COVID-19 vaccine series completed GERD (gastroesophageal reflux disease) Prostate cancer Dyslipidemia Hypothyroid Surgical History H/O colonoscopy Hx of tonsillectomy H/O prostate biopsy Family History Father Emphysema of lung Mother Lung cancer Social History Housing: House Alcohol intake: current Alcohol intake frequency: a few times a month Patient Tobacco Use Status: Never used Tobacco e-Cigarette/Vaping Use: Never Used Second Hand Smoke Exposure: No Current occupational status: retired Cognitive needs: No Hearing needs: No Vision needs: No Review of Systems Const All systems reviewed & are unremarkable except as noted in HPI and below Physical Exam Vital Signs: Last Vital Signs Pulse 86 02/03/24 08:03 BP 128/72 02/03/24 08:03 Pulse Ox 96 02/03/24 08:03 Oxygen Delivery Method Room Air 02/03/24 08:03 BMI result Body Mass Index 31.4 Const General: no acute distress Nutritional Appearance: overweight Orientation/consciousness: patient oriented x3 Neuro General: patient oriented x3, gait normal and moves all extremities Extrem Right upper extremity: normal to inspection, full ROM and shoulder/upper arm Details: normal to inspection and normal ROM; no tenderness and no swelling Left upper extremity: normal to inspection, full ROM and shoulder/upper arm Details: inspection abnormal and normal ROM; no tenderness and no swelling Right lower extremity: normal to inspection and full ROM Left lower extremity: normal to inspection and full ROM Psych Speech and movement: Normal speech and movement present Assessment & Plan Assessment & Plan (1) Arthralgia: Code(s): M25.50 - Pain in unspecified joint Qualifiers: Joint pain location: other joint Qualified Code(s): M25.59 - Pain in other specified joint Plan: Continue taking Ibuprofen PRN IceHot Offered PT, but patient declined for now. Coding Level of Care Code Est Pt Level 3 (81237) Diagnoses Pain in other joint M25.59 Joint pain location: other joint Time Spent (min) 15
== END 2024-02-03 08:29 | disposition home or self-care (01) ==
PROVIDERS: PCP Nurse Practitioner Family; Visit Provider Nurse Practitioner Family
DX: M25.59 Pain in other specified joint (principal)

== ENCOUNTER → 2024-02-03 08:03 | Outpatient (BNVA) | payer MEDICARE, SELFPAY | PROVIDERS: PCP Nurse Practitioner Family; Visit Provider Nurse Practitioner Family | DX: M25.59 Pain in other specified joint (principal); M79.601 Pain in right arm | CPT/HCPCS: 99212 ==

== ENCOUNTER 2024-03-26 07:56 | Outpatient (REF) | payer MEDICARE, SELFPAY ==
--- NOTE | ~2024-03-26 | XR_ITS ---
EXAMINATION: XR SHOULDER 2 OR MORE VIEWS RIGHT HISTORY: M25.511 - Pain in right shoulder COMPARISON: There are no prior studies available for comparison. FINDINGS: Four views of the right shoulder are submitted. Osseous mineralization is normal. There is no fracture or dislocation. The glenohumeral joint is maintained. There is moderate osteoarthritis of the AC joint with joint space narrowing and osteophyte formation. The soft tissues are unremarkable. XR/XR shoulder RT min 2V IMPRESSION: Moderate osteoarthritis of the AC joint. Electronically signed by: Luis Enrique Montgomery MD 03/28/2024 01:40 PM EST
== END 2024-03-26 07:57 | disposition home or self-care (01) ==
LOC: HO.HMGCX 07:56
PROVIDERS: PCP Nurse Practitioner Family; Visit Provider Nurse Practitioner Family
DX: Z00.01 Encounter for general adult medical examination with abnormal findings (principal); M25.511 Pain in right shoulder; E78.5 Hyperlipidemia, unspecified
CPT/HCPCS: 73030; 96127; 99212

== ENCOUNTER 2024-03-26 07:56 | Outpatient (AMB) | payer MEDICARE, SELFPAY ==
[2024-03-26 08:02] VITALS: BP 122/74; PULSE 81; O2SAT 97; BMI 30.9
--- NOTE | 2024-03-26 08:02 | MHC.PC.OV ---
Vital Signs 03/26/24 08:02 Height 5 ft 9.5 in Intake Visit Reasons: SWV G0439 Intake Note: pt is here for MWV Pipe Finisher Required: No Accompanied by: Self / Same As Patient Allergies No Known Allergies [No Known Allergies*] Allergy (Verified 03/26/24 08:02) Tobacco use date assessed: 07/18/23 Fall risk assessment: No Falls in past year Last assessed Fall Risk: 03/26/24 Dental Screening Dental Screen Date: 07/18/23 [facility] Medical History COVID-19 vaccine series completed GERD (gastroesophageal reflux disease) Prostate cancer Dyslipidemia Hypothyroid Surgical History H/O colonoscopy Hx of tonsillectomy H/O prostate biopsy Family History Father Emphysema of lung Mother Lung cancer Social History Housing: House Alcohol intake: current Alcohol intake frequency: a few times a month Patient Tobacco Use Status: Never used Tobacco e-Cigarette/Vaping Use: Never Used Second Hand Smoke Exposure: No Current occupational status: retired Cognitive needs: No Hearing needs: No Vision needs: No Questionnaire Thrive Questionnaire Date Thrive assessed: 03/26/24 I am a: Patient What is your living situation today?: I have a steady place to live Within the past 12 months, did the food you bought not last and you didn't have the money to get more?: Never true Within the past 12 months, did you worry whether your food would run out before you got money to buy more?: Never true Do you have trouble paying for medicines?: No Do you have trouble getting transportation to medical appointments?: No Do you have trouble paying your heating and electricity bill?: No Do you have trouble taking care of your child, family member or friend?: No Do you have trouble with day-to-day activities such as bathing, preparing meals, shopping, managing finances, etc.?: No Are you currently unemployed and looking for a job?: No Are you interested in more education?: No Please select the resources that you would like help with: None Currently or been in a relationship where the following occur: No concerns reported THRIVE Score: 0 GINA-7 AMB Questionnaire GINA-7 Date GINA - 7 assessed: 01/11/23 Source: Developed by Drs. Luis Enrique Vides, Miriam Siu, Neo Yu and colleagues, with an educational jalen from [employer]. Physical exam (Primary Care) Tobacco/Smoking Status: Tobacco use Status Tobacco use date assessed 07/18/23 02/03/24 08:01 Patient Tobacco Use Status Never used Tobacco 02/03/24 08:04 e-Cigarette/Vaping Use Never Used 02/03/24 08:01 Thrive Assessment: Date of Thrive Assessment Date Thrive assessed 01/11/23 02/03/24 08:01 Currently or been in a relationship where the following occur: No concerns reported Coding
--- NOTE | 2024-03-26 08:05 | A.OFFVIS_ITS ---
Intake Vital Signs 03/26/24 08:02 Height 5 ft 9.5 in Weight 212 lb BMI 30.9 BP 122/74 Blood Pressure Location Rt brachial Position Sitting Pulse 81 Pulse Source Pulse Oximeter Pulse Oximetry (%) 97 Oxygen Delivery Method Room Air Intake Visit Reasons: SWV G0439 Allergies No Known Allergies [No Known Allergies*] Allergy (Verified 03/26/24 08:02) Do you need a note to return to daycare/school/sports/work: No HPI SWV G0439 HPI Details here for a AWV. [place] of care in scan pile, PPP in scan pile. (NOTE: encouraged pt to get his labs drawn from last June). #2 ongoing right shoulder pain for months now. No one traumatic event that caused this. He describes more anterior/lateral shoulder pain with elevation of RUE. Will get an XR and will most likely refer to to PT. [facility] Medical History COVID-19 vaccine series completed GERD (gastroesophageal reflux disease) Prostate cancer Dyslipidemia Hypothyroid Surgical History H/O colonoscopy Hx of tonsillectomy H/O prostate biopsy Family History Father Emphysema of lung Mother Lung cancer Social History Housing: House Alcohol intake: current Alcohol intake frequency: a few times a month Patient Tobacco Use Status: Never used Tobacco e-Cigarette/Vaping Use: Never Used Second Hand Smoke Exposure: No Current occupational status: retired Cognitive needs: No Hearing needs: No Vision needs: No Questionnaire Medicare Wellness Checkup What is your age?: 79 or older What gender do you identify with?: male During the past 4 weeks, how much have you been bothered by emotional problems such as feeling anxious, depressed, irritable, sad or downhearted, and blue?: not at all During the past 4 weeks, has your physical & emotional health limited your social activities with family, friends, neighbors, or groups?: not at all During the past 4 weeks, how much bodily pain have you generally had?: moderate pain During the past 4 weeks, was someone available to help you if you needed & wanted help?: yes, as much as I wanted During the past 4 weeks, what was the hardest physical activity you could do for at least 2 minutes?: very heavy Can you get to places out of walking distance without help? (For eg., can you travel alone on buses, taxis or drive your car?): Yes Can you go shopping for groceries or clothes without someone's help?: Yes Can you prepare your own meals?: Yes Can you do your housework without help?: Yes Because of any health problems, do you need the help of another person with your personal care needs such as eating, bathing, dressing or getting around the house?: No Can you handle your own money without help?: No During the past 4 weeks, how would you rate your health in general?: very good During the past 4 weeks how have things been going for you?: very well; could hardly better Are you having difficulties driving your car?: no Do you always fasten your seat belt when you are in a car?: yes, usually During past 4 weeks, have you been bothered by the following: never: Falling or dizzy when standing up, Sexual problems?, Trouble eating well?, Teeth or denture problems? and Problems using the telephone? and seldom: Tiredness or fatigue? Have you fallen 2 or more times in the past year?: No Are you afraid of falling?: No Are you a smoker?: no During the past 4 weeks, how many drinks of wine, beer, or other alcoholic beverages did you have?: 1 drink or less per week Do you exercise for about 20 minutes 3 or more times a week?: yes, some of the time Have you been given information to help with the following?: no: Hazards in your house that might hurt you? and no: Keeping track of your medications? How often do you have trouble taking medicines the way you have been told to take them?: I always take medicine as prescribed How confident are you that you can control & manage most of your health problems?: very confident What is your race?: White PHQ-9 Over the last 2 weeks, how often have you been bothered by any of the following problems? 1. Little interest or pleasure in doing things: not at all 2. Feeling down, depressed, or hopeless: not at all 3. Trouble falling or staying asleep, or sleeping too much: not at all 4. Feeling tired or having little energy: not at all 5. Poor appetite or overeating: not at all 6. Feeling bad about yourself - or that you are a failure or have let yourself or your family down: not at all 7. Trouble concentrating on things, such as reading the newspaper or watching television: not at all 8. Moving or speaking so slowly that other people could have noticed. Or the opposite - being so fidgety or restless that you have been moving around a lot more than usual: not at all 9. Thoughts that you would be better off or of hurting yourself in some way: not at all Total score: 0 Depression Screening Interpretation: Negative Depression Screening Done: Yes 24302 - PHQ-9 Billing: Yes Source: Developed by Drs. Luis Enrique Vides, Miriam Siu, Neo Yu and colleagues, with an educational jalen from [employer] GINA-7 AMB Questionnaire GINA-7 Date GINA - 7 assessed: 01/11/23 Source: Developed by Drs. Luis Enrique Vdies, Miriam Siu, Neo Yu and colleagues, with an educational jalen from [employer] Physical Exam Vital Signs: Last Vital Signs Pulse 81 03/26/24 08:02 BP 122/74 03/26/24 08:02 Pulse Ox 97 03/26/24 08:02 Oxygen Delivery Method Room Air 03/26/24 08:02 BMI result Body Mass Index 30.9 Neuro Other: able to stand from sitting position, able to tandem walk, + whisper test, Neg rhomberg Extrem Other: neg francis, neg neers, + jobes, discomfort to anterior right shoulder with lateral raises against resistance. Assessment & Plan Assessment & Plan (1) Medicare annual wellness visit, subsequent: Code(s): Z00.00 - Encounter for general adult medical examination without abnormal findings (2) Right shoulder pain: Code(s): M25.511 - Pain in right shoulder Plan: XR ordered Plan . Orders: Orders XR shoulder RT min 2V Today M25.511 - Pain in right shoulder Quality Reporting (2019) Depression/Bipolar (159/160/161/177) PHQ-9: Total score: 0 Coding Level of Care Code Medicare Subsequent (G0439) Est Pt Level 3 (44393) Diagnoses Medicare annual wellness visit, subsequent Z00.00 Right shoulder pain M25.511 CPT Codes Advance Care Planning - Time spent: 1-15 minutes, on File ([id number]) Additional Codes PHQ-9 - 58537 - PHQ-9 Billing: Yes ([id number]) Advance Care Planning Forms completed: Health Care Proxy (form already filled out), MOLST (form already filled out (scanned)) and Living will (pt reports this already is filled out) Time spent: 1-15 minutes, on File Actual minutes spent: 10
== END 2024-03-26 08:48 | disposition home or self-care (01) ==
PROVIDERS: PCP Nurse Practitioner Family; Visit Provider Nurse Practitioner Family
DX: Z00.00 Encounter for general adult medical examination without abnormal findings (principal); M25.511 Pain in right shoulder

== ENCOUNTER → 2024-03-26 08:55 | Outpatient (BNV) | payer MEDICARE, SELFPAY | PROVIDERS: PCP Nurse Practitioner Family; Visit Provider Radiology Diagnostic Radiology | DX: M19.011 Primary osteoarthritis, right shoulder (principal) | CPT/HCPCS: 73030 ==

== ENCOUNTER 2024-05-18 07:00 | Outpatient (RCR) | payer MEDICARE, SELFPAY ==
--- NOTE | 2024-04-09 08:01 | MHC.PT.EP ---
[facility] [place] Office [place] Office [place] Office [address] Lillian Poole [address] [phone] F: [phone] F: [phone] F: [phone] F: [phone] Physical Therapy Plan of Care Date of Evaluation: 04/09/24 Date of Surgery: n/a Diagnosis: pain in R shoulder Assessment: Patient is a 79 year old male presenting to PT with complaints of pain in his R shoulder. Pt reports onset of pain began December 2023 due to insidious onset. He presents today with impairments in ROM, strength, posture. Pt's current occupation is retired, with baseline physical activities including ADLs, driving, sleeping, household duties. 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 Clinical presentation today is most consistent with signs and sx associated with R shoulder pain and pt will benefit from skilled PT 2 week x 4 weeks to address the following problems and impairments noted upon evaluation: ROM, strength, posture. These problems limit the patient with the following functional activities: ADLs, driving, sleeping, household duties, lifting. The prescribed treatment plan of care is medically necessary. Co-morbidities of hx prostate CA were identified and taken into considerations of plan of care. Pt was educated on HEP, role of PT, prognosis, POC. Frequency and Duration: The patient will be seen 2 x week x 4 weeks Short Term Goals: Pt will demonstrate ability to move through ROM on R without pain in 2 weeks. Pt will demonstrate improved R shoulder MMT strength by 1/3 grade in 2 weeks. Health Science Specialist Goals: Pt will demonstrate improved SPADI score by 13 points in 4 weeks for improved functional mobility. Pt will demonstrate ability to tuck in his shirt with min to no pain in 4 weeks for improved tolerance to ADLs. Pt will demonstrate ability to sleep through the night with min to no pain in 4 weeks for return to PLOF. Treatment Plan: Modalities to reduce pain, spasms and effusion. Manual therapy to restore motion and function. Therapeutic exercise to improve strength and flexibility. Neuromuscular re-education for posture and balance. Therapeutic activities to return to functional activities of daily living. Electronically signed by: Sailaja Smith, PT, DPT, ATC Please sign and return to therapist. Thank you for your referral.
--- NOTE | 2024-05-18 07:50 | MHC.PT.DC ---
[facility] [place] Office [place] Office [place] Office [address] Lillian Poole [address] [phone] F: [phone] F: [phone] F: [phone] F: [phone] Physical Therapy Discharge Report Diagnosis: pain in R shoulder Date of Surgery: n/a Date of Evaluation: 04/09/24 Date of Discharge: 05/18/24 Treatments to Date: 12 Cancellations to Date: 0 No Shows to Date: 0 Discharge Status: Achieved Goals Improved Function Independent with HEP Recommend MD Follow-up Discharge Summary: 05/18/2024: Pt has made progress since start of care currently demonstrating improved strength and ROM. He is no longer having as intense pain but it is still there to some degree more of a nagging description at this point. At this time we have maximized skilled PT and it is no longer indicated to continue. He is independent and compliant with his HEP which he feels is helpful. I recommend a specialist follow up if his pain continues to limit him. He is in agreement with d/c and plan today. 05/14/2024: He has been continuing to do well with his exercises and not having pain. Still has a dull ache that is pretty constant at baseline but overall still feels improved as sharp pain is gone. He has 1 visit left and plan is to d/c at that time. 05/11/2024: Continues to do well with all exercises. No increase in pain. Good carry over from session to session and independence building with his program. Encouraged continuing at home as tolerated. 05/09; Pt progressing with ROM ,when compared to opposite sh R is better. Pt int rot most restricted with c/o AC pain. 05/04/2024: He is feeling some relief that is lasting longer periods of time. He is developing independence with his program needing some cues for form for max benefits. He has no pain during the session and is tolerating more weight with strengthening. He knows to continue with his HEP at home as tolerated. 04/30/2024: He had less pain sleeping last night although was sore from shoveling snow. He needs some cues for form intermittently. He wants to add a couple visits which I feel is reasonable instead of being d/c next visit like originally planned. In the meantime he knows to continue with his HEP at home as tolerated. 04/27/2024: He has some soreness after sleeping last night. Some discomfort during the session with cane flexion which typically does not bother him. Cues for form intermittently. He has 2 visits left and plan is to d/c at that time. Pt knows to continue with his HEP at home as tolerated. 04/23/2024: Advised pt to return to using a pillow when he is sleeping to help with his pain as he got relief from this previously. No pain during session and reports feeling more mobile at the end of the session. Cues intermittently for form. Encouraged continuing with HEP at home as tolerated. 04/20/2024: [place] relief after the session today as moving helped with his soreness. Tolerated more weight with rows and ER which is progress. Cues for form at times primarily with RC strengthening. Encouraged continuing with HEP at home as tolerated. 04/16/2024: He felt relief after last session so we continued with the same exercises. No pain during the session although he reports resisted ER is most difficult. Encouraged continuing with HEP at home as tolerated. 04/13/2024: Focused on shoulder ROM and postural/RC strengthening. No pain reported. He needs cues for slow speed throughout and proper form for max benefits. Updated HEP and printout provided for home. Patient is a 79 year old male presenting to PT with complaints of pain in his R shoulder. Pt reports onset of pain began December 2023 due to insidious onset. He presents today with impairments in ROM, strength, posture. Pt's current occupation is retired, with baseline physical activities including ADLs, driving, sleeping, household duties. 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 Clinical presentation today is most consistent with signs and sx associated with R shoulder pain and pt will benefit from skilled PT 2 week x 4 weeks to address the following problems and impairments noted upon evaluation: ROM, strength, posture. These problems limit the patient with the following functional activities: ADLs, driving, sleeping, household duties, lifting. The prescribed treatment plan of care is medically necessary. Co-morbidities of hx prostate CA were identified and taken into considerations of plan of care. Pt was educated on HEP, role of PT, prognosis, POC. Electronically signed by: Sailaja Smith, PT, DPT, ATC Please sign and return to therapist. Thank you for your referral.
== END 2024-05-18 07:50 | disposition home or self-care (01) ==
LOC: HO.PTCHIC 07:00
PROVIDERS: PCP Nurse Practitioner Family; Visit Provider Nurse Practitioner Family
DX: M19.90 Unspecified osteoarthritis, unspecified site (principal); M25.511 Pain in right shoulder
CPT/HCPCS: 97110; 97161

== ENCOUNTER 2024-07-07 09:52 | Emergency (ER) | payer MEDICARE, SELFPAY ==
--- NOTE | ~2024-07-07 | CT_ITS ---
CLINICAL HISTORY: fall +HS CT head without contrast Comparison: None Findings: No intra-axial mass, midline shift, hydrocephalus, or acute hemorrhage. No significant atrophy-like change or white matter disease. The visualized paranasal sinuses and mastoid air cells are normal. The orbits are unremarkable. There is no acute fracture. IMPRESSION: 1. No acute intracranial findings. This document has been electronically signed by: Ravin Teixeira MD on 07/07/2024 10:54:21
--- NOTE | ~2024-07-07 | CT_ITS ---
CLINICAL HISTORY: fall +HS CT cervical spine without contrast Comparison: None Findings: Normal vertebral body alignment. Multiple level degenerative disc, facet, and uncovertebral joint change. No acute fractures or dislocations. Visualized intracranial contents are unremarkable. No cervical fluid collections or masses. No consolidation or effusion at the lung apices. IMPRESSION: No acute findings. This document has been electronically signed by: Ravin Teixeira MD on 07/07/2024 10:55:22
[2024-07-07 09:55] VITALS: BP 145/82; PULSE 83; RESP 18; TEMP 35.8; O2SAT 95; BMI 30.7
--- NOTE | 2024-07-07 09:59 | ED.FALL ---
HPI - Fall General Chief Complaint: Fall Stated Complaint: fall, head strike Time Seen by Provider: 07/07/24 09:58 Source: patient, RN notes reviewed and old records reviewed Mode of arrival: ambulatory History of Present Illness ED Provider: [place] Person PA-C HPI Narrative: 79-year-old male with a past medical history of prostate CA, HLD, hypothyroid, presenting to the ED complaining of laceration to posterior scalp s/p mechanical trip and fall at [employer] and hitting head on marble pillar. 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 Denies headache, neck pain, vision change or loss, nausea/vomiting, numbness, tingling, weakness. Denies symptoms prior to fall. Tetanus unknown Related Data Previous Rx's ?Medication ?Instructions ?Recorded atorvastatin 80 mg tablet 80 mg PO BEDTIME #90 tabs 11/30/23 coenzyme Q10 50 mg-vitamin E 5 1 cap PO DAILY 90 days #90 caps 11/30/23 unit capsule ibuprofen 600 mg tablet 600 mg PO Q8H PRN pain 90 days 04/25/24 #270 tabs levothyroxine 50 mcg tablet 50 mcg PO DAILY #90 tabs 04/25/24 tamsulosin 0.4 mg capsule 0.4 mg PO DAILY 90 days #90 caps 04/25/24 Allergies Allergy/AdvReac Type Severity Reaction Status Date / Time No Known Allergies Allergy Verified 07/07/24 09:56 [No Known Allergies*] Review of Systems Review of Systems: Yes all other systems are reviewed and are negative Constitutional: Constitutional: Reports as per HPI Neurologic: Denies Abnormal speech present [facility] Past Medical History Attestation statement: The following information was validated with the patient. Source: old records reviewed Medical History COVID-19 vaccine series completed GERD (gastroesophageal reflux disease) Prostate cancer Dyslipidemia Hypothyroid Surgical History H/O colonoscopy Hx of tonsillectomy H/O prostate biopsy Family History Family History Father Emphysema of lung Mother Lung cancer Social History Social History Housing: House Alcohol intake: current Alcohol intake frequency: a few times a month Patient Tobacco Use Status: Never used Tobacco Smoked in Last 30 Days: No e-Cigarette/Vaping Use: Never Used Second Hand Smoke Exposure: No Use of substances other than those prescribed or required for medical reasons: No Advance Directives: No Advance Directives Information Provided: No Current occupational status: retired Cognitive needs: No Hearing needs: No Vision needs: No Physical Exam Vital Signs: Vital Signs: Last Vital Signs Temp 98.3 F 07/07/24 11:22 Pulse 71 07/07/24 11:22 Resp 16 07/07/24 11:22 BP 119/68 07/07/24 11:22 Pulse Ox 95 07/07/24 11:22 O2 Del Method Room Air 07/07/24 11:22 BMI result Body Mass Index 30.7 Const: General: cooperative, healthy appearing and no acute distress Orientation/consciousness: patient oriented x3 Limitations: no limitations HEENT: Other: 5 cm linear superficial laceration noted to posterior scalp. Bleeding controlled. No palpable step-off. Head: No Vuong's sign and No raccoon eyes Ears: hearing grossly normal bilaterally General nose exam: Normal external nose present Face and sinus: Yes normal facial exam Mouth: Normal oral and palatal mucosa present Throat: Yes posterior oropharynx normal Eyes: General: appearance normal, both eyes and all related structures Pupils: Equal, round and reactive pupils present EOM: EOMs intact bilaterally Neck: Neck: Yes normal visual inspection, Yes no meningeal signs and No anterior neck swelling Resp: Effort & Inspection: normal respiratory effort and no respiratory distress Cardio: Rate: regular rate Back/Spine/Pelvis: Other: No midline cervical/thoracic/lumbar spinous tenderness/step-off or deformity Skin: Rashes: no rashes Wounds: no wounds Neuro: General: patient oriented x3, tone normal, moves all extremities, no meningeal signs, no focal motor deficits and CN's II-XI intact bilaterally Cranial nerves: Yes CN's II-XII intact bilaterally and Yes Equal, round and reactive pupils present Cognition (Neuro): normal cognition Speech: No Abnormal speech present Gait exam (Neuro): Normal gait present Motor exam (neuro): 5/5 motor strength present throughout Extrem: General: Yes normal to inspection Course Course Course Narrative: 1112--head and C-spine CT without acute findings > 9 victoria placed to posterior scalp laceration Results discussed with patient including worrisome signs and symptoms and strict return precautions, and when to return to the emergency department. They verbalized understanding and feel safe for discharge at this time. Medications Administered Discontinued Medications Generic Name Dose Route Start Last Admin Trade Name Freq PRN Reason Stop Dose Admin Diphtheria/Tetanus/Acell Pertussis 0.5 ml 07/07/24 10:05 07/07/24 11:06 Diphth,Pertus(Acell),Tet Adult 0.5 Ml Syringe IM 07/07/24 10:06 0.5 ml .ONCE ONE Administration Procedures Laceration Laceration 1: Site: scalp Size (cm): 5 Description: linear Depth: simple, single layer Pre-repair: wound explored and irrigated extensively Number of sutures: 9 (victoria) Medical Decision Making Medical Decision Making MDM Narrative: 79-year-old male with a past medical history of prostate CA, HLD, hypothyroid, presenting to the ED complaining of laceration to posterior scalp s/p mechanical trip and fall at [employer] and hitting head on marble pillar. On exam vital signs stable, NAD, nontoxic appearing, physical exam as noted above with large laceration to posterior scalp. No midline spinous tenderness. No focal neuro deficits. Concern for other laceration. Rule out ICH vs fracture. Low suspicion for ACS, SAH Plan: Head/C-spine CT, update tetanus, repair wound Please refer to course for remaining clinical decision making, interpretation of labs/imaging results, and discussions with consultants and/or family members. Differential Diagnosis Differential Diagnoses: The differential diagnosis associated with the presentation includes As above Admission/Observation Consideration of admission/observation: Escalation of care including admission/observation considered Lab Data [facility] Lab Attestation statement: I reviewed the patient's lab results. Independent Interpretation I performed an independent interpretation of an: CT Scan Radiology Impression Discussion of test interpretation with radiology: I have reviewed the radiologist's reading. Independent Historian Clinical information obtained from an independent historian. History obtained from or confirmed by: Spouse External Record Review External record reviewed: Inpatient record, Office record, Outpatient record, Prior outpatient labs, Prior outpatient radiology, Primary care record and Outside ED record Tests considered The following testing was considered but not selected: As above Prescription Management I considered prescription management with: Pain Medication Chronic Conditions Patient?s care impacted by: Other (HLD) Social Determinants Patient?s care significantly limited by Social Determinants of Health including: Other Social Determinant of Health Discharge Plan Discharge Clinical Impression: Laceration of scalp, Head injury Patient Disposition: Home, Self-Care Instructions: Laceration (DC), Head Injury (ED) Additional Instructions: The scan of your head and neck were unremarkable Take Tylenol and ibuprofen at home for pain Ice painful area It is normal for you to have some headaches, nausea, and some lightheadedness denies injury or head injury hour Graves disease persistent or worsening, you have weakness, nausea/vomiting return to the ED immediately Your wounds were repaired today in the emergency department. Keep dry and clean. You need to return to any emergency department, urgent care, or your PCPs office in 7-10 days for staple removal Apply bacitracin and or Neosporin daily Once sutures are removed apply anti scar cream like Mederma If area begins look infected, is red, there is drainage, streaking, or you have fever please return to the emergency department Prescriptions: No Action coenzyme [id number] E 50-5 mg-unit capsule 1 cap PO DAILY 90 Days Qty: 90 3RF atorvastatin 80 mg tablet 80 mg PO BEDTIME Qty: 90 3RF levothyroxine 50 mcg tablet 50 mcg PO DAILY Qty: 90 1RF tamsulosin 0.4 mg capsule 0.4 mg PO DAILY 90 Days Qty: 90 1RF ibuprofen 600 mg tablet 600 mg PO Q8H PRN (Reason: pain) 90 Days Qty: 270 0RF Referrals: Ta Mcneill, BOX OFFICE MANAGER-BC [Primary Care Provider] - 1 week Interventions: ED Discharge Assessment Last Done: 07/07/24 11:22 Discharge Date/Time: 07/07/24 11:24 Print Language: Czech
--- OUTSIDE RECORDS SUMMARY | 2024-07-07 10:08 | XMS_ITS | Patient Health Record ---
Author Organization [facility] Address [address] [place] [address] Care Team Providers Care Business Affairs Manager Name Role Phone EMMANUEL MEDINA Primary Care Provider Edmund Morales Jr Unavailable [phone] Reason For Referral No Information Medications Medication SIG (Take, Route, Frequency, Duration) Notes Start Date End Date Status Levothyroxine Sodium 25 MCG 1 tablet in the morning on an empty stomach Orally Once a day for 30 day(s) Active Tamsulosin HCl 0.4 MG 1 capsule Orally O nce a day for 30 day(s) Active Atorvastatin Calcium 40 MG 1 tablet Oral ly Once a day for 30 day(s) Active MiraLax (colon prep) 8.3 ounce ((238) grams mixed with Gatorade or Crystal Light orally begin at 5:00 p.m. the day before the procedure for 1 day 06/02/2020 Active Acetaminophen 500 MG 2x pills Orally abdelrahman ry 6 hrs Active Immunizations Vaccine Route Administration Date Status Comme nts Influenza Unknown 01/02/2020 Administered Social History Alcohol Screen Question Answer Notes Did you have a drink containing alcohol in the p ast year? No Points 0 Interpretation Negative Section Notes: Tobacco use is negative. Alc ohol use is one drink 2 times per week. Tobacco use is negative. Alc ohol use is one drink 2 times per week. Problems Problem Type SNOMED Code ICD Code Onset Dates Problem Status W/U Status Risk Notes Problem [id number] Rectal bleeding (K62.5) Active confirmed Plan Of Treatment Future Test Test Name Order Date COLONOSCOPY 06/18/2011 COLONOSCOPY 06/02/2020 Insurance Providers Payer Name Payer Address Payer Phone Subscriber Number Group Number Insured Name Patient Relationship to Insured Coverage Start Date Coverage End Date MEDICARE OF [place] [address] [place] [address] [id number] BRITTANY QUIROS Self - patient is the insured MED[employer] ATT[employer] CLAIMS [address] [place] [address] [phone] [id number] BRITTANY QUIROS Self - patient is the insured Medical (General) History Medical History History ICD Code elevated cholesterol anemia prostate cancer January 2018, radiation therapy Hypothyroidism Surgical History Surgery Date(Month/Year) tonsillectomy
[2024-07-07 10:22] VITALS: BP 119/68; PULSE 71; RESP 16; O2SAT 95
[2024-07-07 10:23] VITALS: BP 119/68; PULSE 71; RESP 16; O2SAT 95
[2024-07-07] MEDS: Diphth,Pertus(ACell),Tet Adult 0.5 ML SYRINGE IM (11:06)
[2024-07-07 11:22] VITALS: BP 119/68; PULSE 71; RESP 16; TEMP 36.8; O2SAT 95
== END 2024-07-07 11:24 | disposition home or self-care (01) ==
PROVIDERS: Emergency Provider Emergency Medicine; PCP Nurse Practitioner Family
DX: S01.01XA Laceration without foreign body of scalp, initial encounter (principal); W07.XXXA Fall from chair, initial encounter; Y93.9 Activity, unspecified; Y92.9 Unspecified place or not applicable; Y99.9 Unspecified external cause status; Z23 Encounter for immunization
CPT/HCPCS: 12002; 70450; 72125; 90471; 90715; 99284

== ENCOUNTER → 2024-07-07 10:05 | Outpatient (BNV) | payer MEDICARE, SELFPAY | PROVIDERS: Emergency Provider Emergency Medicine; PCP Nurse Practitioner Family; Visit Provider Specialist | DX: L73.2 Hidradenitis suppurativa (principal); W19.XXXA Unspecified fall, initial encounter | CPT/HCPCS: 70450; 72125 ==

== ENCOUNTER 2024-07-16 08:04 | Outpatient (AMB) | payer MEDICARE, SELFPAY ==
--- NOTE | 2024-07-16 08:30 | MHC.OFFWIV ---
Intake Vital Signs 07/16/24 08:35 Weight 198 lb BP 130/80 Blood Pressure Location Lt brachial Position Sitting Pulse 69 Pulse Source Pulse Oximeter Pulse Oximetry (%) 98 Oxygen Delivery Method Room Air Intake Visit Reasons: EP removal of victoria Intake Note: Patient here for staple removed ( 9 ) which were placed 9 days ago. Patient Tobacco Use Status: Never used Tobacco Allergies No Known Allergies [No Known Allergies*] Allergy (Verified 07/16/24 08:36) Do you need a note to return to daycare/school/sports/work: No HPI HPI Comments History of Present Illness Details 79 y/o Male patient who presents to the walk in clinic for Victoria removal. He had Victoria placed 9 days ago and today asking for removal. Denies headaches, dizziness or vision changes. [facility] Medical History (Updated 07/16/24 @ 10:36 by Oneyda Rodrigues NP) Encounter for removal of victoria COVID-19 vaccine series completed GERD (gastroesophageal reflux disease) Prostate cancer Dyslipidemia Hypothyroid Surgical History H/O colonoscopy Hx of tonsillectomy H/O prostate biopsy Family History Father Emphysema of lung Mother Lung cancer Social History Housing: House Alcohol intake: current Alcohol intake frequency: a few times a month Patient Tobacco Use Status: Never used Tobacco e-Cigarette/Vaping Use: Never Used Second Hand Smoke Exposure: No Current occupational status: retired Cognitive needs: No Hearing needs: No Vision needs: No Review of Systems Const All systems reviewed & are unremarkable except as noted in HPI and below Physical Exam Vital Signs: Last Vital Signs Pulse 69 07/16/24 08:35 BP 130/80 07/16/24 08:35 Pulse Ox 98 07/16/24 08:35 Oxygen Delivery Method Room Air 07/16/24 08:35 Const General: no acute distress Orientation/consciousness: patient oriented x3 HEENT Head images: 1. Scalp Wound, healing well, removed 9 victoria, Minimal bleeding. Dress the wound with [place]Daniels. Resp Effort & Inspection: normal respiratory effort Cardio Heart sounds: S1 normal heart sound present and S2 normal heart sound present Neuro General: patient oriented x3, gait normal and moves all extremities Psych Speech and movement: Normal speech and movement present Assessment & Plan Assessment & Plan (1) Encounter for removal of victoria: Code(s): Z48.02 - Encounter for removal of sutures Plan: All 9 Victoria removed with no difficulties. Patient able to tolerate with minimal pain. Minimal Bleeding, well controlled with Pressure. Dress the wound with Derm-Daniels liquid bandage. Coding Level of Care Code Est Pt Level 4 (99313) Diagnoses Encounter for removal of victoria Z48.02 Time Spent (min) 20
[2024-07-16 08:35] VITALS: BP 130/80; PULSE 69; O2SAT 98
== END 2024-07-16 09:42 | disposition home or self-care (01) ==
PROVIDERS: PCP Nurse Practitioner Family; Visit Provider Nurse Practitioner Family
DX: Z48.02 Encounter for removal of sutures (principal)

== ENCOUNTER → 2024-07-16 08:04 | Outpatient (BNVA) | payer MEDICARE, SELFPAY | PROVIDERS: PCP Nurse Practitioner Family; Visit Provider Nurse Practitioner Family | DX: Z48.02 Encounter for removal of sutures (principal) | CPT/HCPCS: 99212 ==

== ENCOUNTER 2024-08-15 09:46 | Outpatient (AMB) | payer MEDICARE, SELFPAY ==
[2024-08-15 09:48] VITALS: BMI 29.2
--- NOTE | 2024-08-15 09:48 | A.OFFVIS_ITS ---
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 The patient states that his symptoms have gotten worse over the last year in spite of continued non operative treatments. He states that he aggravated his neck and shoulders while staining his deck last year. He has completed 6 weeks of formal physical therapy which gave him minimal relief. The patient has difficulty sleeping because of his symptoms. He has tried Tylenol and anti-inflammatory medicines which gave him minimal relief. He also reports intermittent weakness in both of his upper extremities. The patient states that at times he has difficulty holding his cup of coffee. Allergies No Known Allergies [No Known Allergies*] Allergy (Verified 08/15/24 09:48) Medication List - Last Reconciled 08/15/24 by Joe Tipton MD atorvastatin 80 mg PO BEDTIME coenzyme O77-tuntbnj E 50-5 mg-unit 1 cap PO DAILY 90 days ibuprofen 600 mg PO Q8H PRN 90 days levothyroxine 50 mcg PO DAILY tamsulosin 0.4 mg PO DAILY 90 days PFSH Medical History (Updated 08/15/24 @ 10:21 by Joe Tipton MD) Encounter for removal of victoria COVID-19 vaccine series completed GERD (gastroesophageal reflux disease) Prostate cancer Dyslipidemia Hypothyroid Surgical History H/O colonoscopy Hx of tonsillectomy H/O prostate biopsy Family History Father Emphysema of lung Mother Lung cancer Social History Housing: House Alcohol intake: current Alcohol intake frequency: a few times a month Patient Tobacco Use Status: Never used Tobacco e-Cigarette/Vaping Use: Never Used Second Hand Smoke Exposure: No Current occupational status: retired Cognitive needs: No Hearing needs: No Vision needs: No Physical Exam Vital Signs: BMI result Body Mass Index 29.2 Const Other: Well-nourished well-developed very friendly male awake alert and oriented x3 in no acute distress Neck Other: Cervical spine examination shows pain with range of motion, bilateral paraspinal muscle tenderness, positive Spurling's test, 4/5 strength with testing of his bilateral biceps and wrist extensors Extrem Other: Bilateral shoulder examination shows forward flexion to 160 degrees, external rotation to 40 degrees, internal rotation to level L4, 4+ out of 5 strength with supraspinatus testing, positive impingement signs, no instability Results Reviewed Results Reviewed: CT scan of the patient's cervical spine shows diffuse degenerative disc disease, no acute bony abnormalities X-rays of the patient's bilateral shoulder show severe acromioclavicular joint narrowing, type 2 acromion, no acute bony abnormalities Assessment & Plan Assessment & Plan (1) Neck pain, bilateral: Code(s): M54.2 - Cervicalgia Category: Medical Plan Mr. Mcqueen presents with progressively worsening neck pain which radiates into both of his upper extremities most likely due to cervical stenosis or a disc herniation. Thus, I will send the patient for an MRI of his cervical spine for further evaluation. I will see him back once the MRI is completed to discuss the findings. He will call me prior to that time should his symptoms worsen in any way. The patient also has bilateral shoulder pains due to impingement syndrome and adhesive capsulitis as well as possible rotator cuff tearing. We will hold off on a shoulder MRI for now. Feel free to call me at any time should questions regarding his orthopedic management arise. Thank you very much for asking me to see this very friendly gentleman. I spent 21 minutes in reviewing the patient's records and imaging studies, seeing the patient and documenting in the medical record. Orders: Orders MR cervical spine wo con Today M54.2 - Cervicalgia Coding Level of Care Code New Pt Level 3 (58652) Complex EM visit Add On G2211 Diagnoses Neck pain, bilateral M54.2
--- OUTSIDE RECORDS SUMMARY | 2024-08-15 10:30 | XMS_ITS | Patient Health Record ---
Author Organization [facility] Address [address] [place] [address] Care Team Providers Care Equity Structurer Name Role Phone EMMANUEL MEDINA Primary Care Provider Edmund Morales Jr Unavailable Reason For Referral No Information Medications Medication [...] Problem Status W/U Status Risk Notes Problem [id number] Rectal bleeding (K62.5) Active confirmed Plan Of Treatment Future Test Test Name Order Date COLONOSCOPY 06/18/2011 COLONOSCOPY 06/02/2020 Insurance Providers Payer Name Payer Address Payer Phone Subscriber Number Group Number Insured Name Patient Relationship to Insured Coverage Start Date Coverage End Date MEDICARE OF [place] [address] [place] [address] [id number] BRITTANY QUIROS Self - patient is the insured MED[employer] ATTN CLAIMS [address] [place] [address] [id number] BRITTANY QUIROS Self - patient is the insured Medical (General) History Medical History History ICD Code elevated cholesterol anemia prostate cancer January 2018, radiation therapy Hypothyroidism Surgical History Surgery Date(Month/Year) tonsillectomy
== END 2024-08-15 10:21 | disposition home or self-care (01) ==
LOC: HO.HOS 09:46
PROVIDERS: PCP Nurse Practitioner Family; Visit Provider Orthopaedic Surgery
DX: M54.2 Cervicalgia (principal)
CPT/HCPCS: 99203; G2211

== ENCOUNTER → 2024-08-15 09:46 | Outpatient (BNVA) | payer MEDICARE, SELFPAY | PROVIDERS: PCP Nurse Practitioner Family; Visit Provider Orthopaedic Surgery | DX: M54.2 Cervicalgia (principal) | CPT/HCPCS: 99202 ==

== ENCOUNTER 2024-08-28 07:55 | Outpatient (AMB) | payer MEDICARE, SELFPAY ==
--- OUTSIDE RECORDS SUMMARY | 2024-08-28 07:58 | XMS_ITS | Patient Health Record ---
Author Organization [facility] Address [address] [place] [address] Care Team Providers Care Shaper And Presser Name Role Phone EMMANUEL MEDINA Primary Care Provider Edmund Morales Jr Unavailable [phone] Reason For Referral No Information Medications Medication [...] Problem Status W/U Status Risk Notes Problem [id number] Rectal bleeding (K62.5) Active confirmed Plan Of Treatment Future Test Test Name Order Date COLONOSCOPY 06/18/2011 COLONOSCOPY 06/02/2020 Insurance Providers Payer Name Payer Address Payer Phone Subscriber Number Group Number Insured Name Patient Relationship to Insured Coverage Start Date Coverage End Date [place]ARE OF [place] [address] [place] [address] [id number] BRITTANY QUIROS Self - patient is the insured MED[employer] ATTN CLAIMS [address] [place] [address] [phone] [id number] BRITTANY QUIROS Self - patient is the insured Medical (General) History Medical History History ICD Code elevated cholesterol anemia prostate cancer January 2018, radiation therapy Hypothyroidism Surgical History Surgery Date(Month/Year) tonsillectomy
[2024-08-28 08:00] VITALS: BP 120/80; PULSE 71; O2SAT 98; BMI 30.9
--- NOTE | 2024-08-28 08:00 | MHC.PC.OV ---
Vital Signs 08/28/24 08:00 Height 5 ft 9 in Weight 209 lb BMI 30.9 BP 120/80 Blood Pressure Location Lt brachial Position Sitting Pulse 71 Pulse Source Pulse Oximeter Pulse Oximetry (%) 98 Oxygen Delivery Method Room Air Intake Visit Reasons: 5m follow up Intake Note: Patient here to discuss labs. Barber Shop Operator Required: No Accompanied by: Self / Same As Patient Allergies No Known Allergies [No Known Allergies*] Allergy (Verified 08/28/24 08:52) Medication List - Last Reconciled 08/28/24 by SWATI Stallworth atorvastatin 80 mg PO BEDTIME coenzyme [id number]-hqbnlup E 50-5 mg-unit 1 cap PO DAILY 90 days ibuprofen 600 mg PO Q8H PRN 90 days levothyroxine 50 mcg PO DAILY tamsulosin 0.4 mg PO DAILY 90 days Tobacco use date assessed: 08/28/24 Fall risk assessment: No Falls in past year Last assessed Fall Risk: 08/28/24 Dental Screening Dental Screen Date: 08/28/24 Did you have a dental visit in the last 12 months?: No Did you have a dental problem in the last 6 months where you did not have access to dental care?: No Was dental information given to patient?: Patient has dentist HPI 5m follow up HPI Details Chief Complaint Follow-up consultation for dyslipidemia management. History of Present Illness The patient is an 79-year-old male presenting with a follow-up for dyslipidemia. He has been managing dyslipidemia and hypothyroidism. During the visit, he denied any recent symptoms such as chest pain, shortness of breath, headaches, or blurred vision. He denies experiencing increased sluggishness but has not felt constipated. His symptoms have remained stable without significant changes or new developments since his last check-up. Management for dyslipidemia has remained unchanged since his previous visit. Social History - Regular visits to a urologist and a clinical data coordinator are maintained. Health Maintenance Review of Systems - Cardiovascular: Denies chest pain, increased shortness of breath. - Neurological: Denies headaches, blurred vision. - Endocrinological: Reports sluggishness. - Gastrointestinal: Denies constipation. Physical Exam General: Cooperative, healthy appearing, comfortable, no acute distress and well developed Orientation: Patient oriented x3 Limitations: No limitations Head: Normal to inspection Ears: Hearing grossly normal bilaterally Nose: Normal external nose present Face and sinus: Normal facial exam Eyes: Appearance normal, both eyes and all related structures Neck: Normal visual inspection and Yes full ROM Respiratory: Normal respiratory effort and able to speak in complete sentences. Clear to auscultation bilaterally Cardiovascular: Regular rate and rhythm. Normal S1 and S2. Faint systolic murmur noted GI: Normal to inspection. Soft to palpation and nontender Skin: No rashes or lesions noted Neuro: Patient oriented x3 Extremities: Trace pitting edema to bilaterally lower extremity Results Plan I will conduct laboratory tests to monitor lipid levels and thyroid function, as part of managing dyslipidemia and hypothyroidism. An echocardiogram will be performed to further evaluate the faint systolic murmur. The patient is instructed to fast before lab work. Routine follow-ups with his regular urologist and clinical data coordinator continue to be recommended, and a follow-up visit is scheduled for six months. Discussion Notes I discussed with the patient the results and the necessity of further lab work and an echocardiogram to gain a better understanding of his cardiovascular status. The importance of fasting before the tests was emphasized for accurate results. We agreed on continuous monitoring with his urologist and clinical data coordinator to ensure a holistic approach to his health care. A six-month follow-up visit was arranged to evaluate the effectiveness of the ongoing treatment and management plans. Patient Instructions - Fast before getting the lab work. - Continue taking your prescribed medications as directed. - Follow up with your urologist and clinical data coordinator as scheduled. - Keep the appointment for an echocardiogram. - Return for your next visit in six months to re-evaluate your health. [facility] Medical History Encounter for removal of vcitoria COVID-19 vaccine series completed GERD (gastroesophageal reflux disease) Prostate cancer Dyslipidemia Hypothyroid Surgical History H/O colonoscopy Hx of tonsillectomy H/O prostate biopsy Family History Father Emphysema of lung Mother Lung cancer Social History Housing: House Alcohol intake: current Alcohol intake frequency: a few times a month Patient Tobacco Use Status: Never used Tobacco e-Cigarette/Vaping Use: Never Used Second Hand Smoke Exposure: No Current occupational status: retired Cognitive needs: No Hearing needs: No Vision needs: No Questionnaire Thrive Questionnaire Date Thrive assessed: 08/28/24 I am a: Patient What is your living situation today?: I have a steady place to live Within the past 12 months, did the food you bought not last and you didn't have the money to get more?: Never true Within the past 12 months, did you worry whether your food would run out before you got money to buy more?: Never true Do you have trouble paying for medicines?: No Do you have trouble getting transportation to medical appointments?: No Do you have trouble paying your heating and electricity bill?: No Do you have trouble taking care of your child, family member or friend?: No Do you have trouble with day-to-day activities such as bathing, preparing meals, shopping, managing finances, etc.?: No Are you currently unemployed and looking for a job?: No Are you interested in more education?: No Please select the resources that you would like help with: None Currently or been in a relationship where the following occur: No concerns reported THRIVE Score: 0 AUDIT C Alcohol Use Questionnaire (AUDIT-C) 1. How often do you have a drink containing alcohol?: 2-4 times a month 2. How many drinks containing alcohol do you have on a typical day when you are drinking?: 1 or 2 3. How often do you have six or more drinks on one occasion?: Never Total Score: 2 Score Reviewed/Action Taken: Yes GINA-7 AMB Questionnaire GINA-7 Date GINA - 7 assessed: 08/28/24 Feeling nervous, anxious, or on edge: 0 = Not at all Not being able to stop or control worryin = Not at all Worrying too much about different things: 0 = Not at all Trouble relaxin = Not at all Being so restless that it is hard to sit still: 0 = Not at all Becoming easily annoyed or irritable: 0 = Not at all Feeling afraid as if something awful might happen: 0 = Not at all Total GINA-7 score (0-4 normal; 5-9 mild; 10-14 moderate; 15-21 severe): 0 Source: Developed by Miriam Branch Kurt Kroenke and colleagues, with an educational jalen from [employer]. GINA-7 Assessment Billing GINA-7 Assessment Tool: GINA-7 Assessment 80818 Physical exam (Primary Care) Vital Signs: Last Vital Signs Pulse 71 08/28/24 08:00 BP 120/80 08/28/24 08:00 Pulse Ox 98 08/28/24 08:00 Oxygen Delivery Method Room Air 08/28/24 08:00 BMI result Body Mass Index 30.9 Tobacco/Smoking Status: Tobacco use Status Tobacco use date assessed 08/28/24 08/28/24 08:01 Patient Tobacco Use Status Never used Tobacco 08/28/24 08:01 e-Cigarette/Vaping Use Never Used 08/28/24 08:01 Thrive Assessment: Date of Thrive Assessment Date Thrive assessed 08/28/24 08/28/24 08:01 Currently or been in a relationship where the following occur: No concerns reported Coding Level of Care Code Est Pt Level 3 (97111) Diagnoses Dyslipidemia E78.5 Hypothyroid E03.9 Systolic murmur R01.1 Additional Codes GINA-7 Assessment Billing - GINA-7 Assessment Tool: GINA-7 Assessment 56945 ([id number]) Assessment & Plan Assessment & Plan (1) Dyslipidemia: Code(s): E78.5 - Hyperlipidemia, unspecified Category: Medical (2) Hypothyroid: Code(s): E03.9 - Hypothyroidism, unspecified Category: Medical (3) Systolic murmur: Code(s): R01.1 - Cardiac murmur, unspecified Category: Medical Plan . Orders: Orders Comprehensive [place]. Panel Fast Today E03.9 - Hypothyroidism, unspecified, E78.5 - Hyperlipidemia, unspecified TSH reflex Free T4 Today E03.9 - Hypothyroidism, unspecified, E78.5 - Hyperlipidemia, unspecified UA CC w/rflx Micro + Cult Today E03.9 - Hypothyroidism, unspecified, E78.5 - Hyperlipidemia, unspecified Complete Blood Count Auto Diff Today E03.9 - Hypothyroidism, unspecified, E78.5 - Hyperlipidemia, unspecified Lipid Panel Today E03.9 - Hypothyroidism, unspecified, E78.5 - Hyperlipidemia, unspecified CA echo transthoracic complete Today R01.1 - Cardiac murmur, unspecified
== END 2024-08-28 09:12 | disposition home or self-care (01) ==
LOC: HO.HMCC 07:56
PROVIDERS: PCP Nurse Practitioner Family; Visit Provider Nurse Practitioner Family
DX: E78.5 Hyperlipidemia, unspecified (principal); E03.9 Hypothyroidism, unspecified; R01.1 Cardiac murmur, unspecified

== ENCOUNTER → 2024-08-28 07:55 | Outpatient (BNVA) | payer MEDICARE, SELFPAY | PROVIDERS: PCP Nurse Practitioner Family; Visit Provider Nurse Practitioner Family | DX: E78.5 Hyperlipidemia, unspecified (principal); E03.9 Hypothyroidism, unspecified; R01.1 Cardiac murmur, unspecified | CPT/HCPCS: 96127; 99212 ==

== ENCOUNTER → 2024-09-03 07:12 | Outpatient (BNV) | payer MEDICARE, SELFPAY | PROVIDERS: PCP Nurse Practitioner Family; Visit Provider Radiology Diagnostic Radiology | DX: M47.812 Spondylosis without myelopathy or radiculopathy, cervical region (principal) | CPT/HCPCS: 72141 ==

== ENCOUNTER 2024-09-03 07:17 | Outpatient (REF) | payer MEDICARE, SELFPAY ==
--- NOTE | ~2024-09-03 | MR_ITS ---
EXAMINATION: MR CERVICAL SPINE WITHOUT CONTRAST CLINICAL INFORMATION: Cervicalgia. COMPARISON: Correlated to CT dated July 07, 2024. TECHNIQUE: MRI of the cervical spine was obtained using routine sequences without contrast. FINDINGS: No bone marrow STIR signal abnormality. Craniocervical junction is intact. Marginal osteophyte formation and endplate irregularity subchondral cyst formation and decreased intervertebral disc height, C4-5 and C5-6 levels. Moderate type II endplate changes, C4-5 and C5-6 and to a lesser extent C6-7 levels. Grade 1 anterolisthesis C3-4 and C5-6. Grade 1 retrolisthesis C4-5. Cervical spinal cord signal is normal. C2-3: No disc herniation. No neuroforamina stenosis. C3-4: Broad-based disc osteophyte compresses formation resulting in decreased AP diameter of the thecal sac. Bilateral neuroforamina narrowing on a degenerative basis. C4-5: Broad-based disc osteophyte complex formation reducing the AP diameter of the thecal sac. Bilateral neuroforamina narrowing on a degenerative basis. C5-6: Broad-based disc osteophyte complex formation. CSF effacement of the thecal sac. Reduced AP diameter of the central spinal canal. Bilateral neuroforamina stenosis on a degenerative basis. C6-7: Broad-based disc osteophyte complex formation. No cord compression. Left neuroforamina narrowing on a degenerative basis. C7-T1: Broad-based disc osteophyte compresses formation. No cord compression. No neuroforamina stenosis. No prevertebral compartment hematoma, mass or fluid collection. Flow-void signal within the main vessels is normal. Right vertebral artery slightly dominant. MR/MR cervical spine wo con IMPRESSION: Multilevel cervical spondylosis C3 C7 resulting in central spinal canal and bilateral neuroforamina stenosis more pronounced at C5-6 and to a lesser extent C4-5 and C3-4 levels. No cord compression, cord edema and or radiculopathy. Electronically signed by: Huy Garcia MD 09/03/2024 08:42 AM EDT
--- OUTSIDE RECORDS SUMMARY | 2024-09-03 07:20 | XMS_ITS | Patient Health Record ---
Author Organization [facility] Address [address] [place] [address] Care Team Providers Care Carton Forming Machine Operator Name Role Phone EMMANUEL MEDINA Primary Care Provider Edmund Morales Jr Unavailable [phone] Reason For Referral No Information Medications Medication [...] Problem Status W/U Status Risk Notes Problem [id number] Rectal bleeding (K62.5) Active confirmed Plan Of Treatment Future Test Test Name Order Date COLONOSCOPY 06/18/2011 COLONOSCOPY 06/02/2020 Insurance Providers Payer Name Payer Address Payer Phone Subscriber Number Group Number Insured Name Patient Relationship to Insured Coverage Start Date Coverage End Date MEDICARE OF [place] [address] [place] [address] [phone] [id number] BRITTANY QUIROS Self - patient is the insured MED[employer] ATTN CLAIMS [address] [place] [address] [id number] BRITTANY QUIROS Self - patient is the insured Medical (General) History Medical History History ICD Code elevated cholesterol anemia prostate cancer January 2018, radiation therapy Hypothyroidism Surgical History Surgery Date(Month/Year) tonsillectomy
== END 2024-09-03 07:18 | disposition home or self-care (01) ==
LOC: HO.MRI 07:17
PROVIDERS: PCP Nurse Practitioner Family; Visit Provider Orthopaedic Surgery
DX: M54.2 Cervicalgia (principal)
CPT/HCPCS: 72141

== ENCOUNTER 2024-09-18 07:34 | Outpatient (AMB) | payer MEDICARE, SELFPAY ==
--- OUTSIDE RECORDS SUMMARY | 2024-09-18 07:37 | XMS_ITS | Patient Health Record ---
Author Organization [facility] Address [address] [place] [address] Care Team Providers Care All Source Intelligence Analyst Name Role Phone EMMANUEL MEDINA Primary Care [...] Problem Status W/U Status Risk Notes Problem [id number] Rectal bleeding (K62.5) Active confirmed Plan Of Treatment Future Test Test Name Order Date COLONOSCOPY 06/18/2011 COLONOSCOPY 06/02/2020 Insurance Providers Payer Name Payer Address Payer Phone Subscriber Number Group Number Insured Name Patient Relationship to Insured Coverage Start Date Coverage End Date MEDICARE OF [place] [address] [place] [address] [id number] BRITTANY QUIROS Self - patient is the insured MED[employer] ATTN CLAIMS [address] [place] [address] [phone] [id number] BRITTANY QUIROS Self - patient is the insured Medical (General) History Medical History History ICD Code elevated cholesterol anemia prostate cancer January 2018, radiation therapy Hypothyroidism Surgical History Surgery Date(Month/Year) tonsillectomy
[2024-09-18 07:41] VITALS: BMI 30.9
--- NOTE | 2024-09-18 07:41 | MHC.OFFVIS ---
Vital Signs 09/18/24 07:41 Height 5 ft 9 in Weight 209 lb BMI 30.9 Intake Visit Reasons: OV-Cervical Spine MRI Review Intake Note: Iban is an 79 year old left hand dominant male who presents with neck pain which radiates into both of his arms as well as bilateral shoulder pain, right greater than left. He states that he aggravated his neck and shoulders while staining his deck last year. He has completed 6 weeks of formal physical therapy which gave him minimal relief. The patient has difficulty sleeping because of his symptoms. He has tried Tylenol and anti-inflammatory medicines which gave him minimal relief. He also reports intermittent weakness in both of his upper extremities. The patient states that his symptoms have gotten somewhat better over the last few weeks. He has been able to do yd work with minimal discomfort. Allergies No Known Allergies (No Known Allergies*) Allergy (Verified 08/28/24 08:52) Medication List - Last Reconciled 09/18/24 by Joe Tipton MD atorvastatin 80 mg PO BEDTIME coenzyme [id number] E 50-5 mg-unit 1 cap PO DAILY 90 days ibuprofen 600 mg PO Q8H PRN 90 days levothyroxine 50 mcg PO DAILY tamsulosin 0.4 mg PO DAILY 90 days PFSH Medical History Encounter for removal of victoria COVID-19 vaccine series completed GERD (gastroesophageal reflux disease) Prostate cancer Dyslipidemia Hypothyroid Surgical History H/O colonoscopy Hx of tonsillectomy H/O prostate biopsy Family History Father Emphysema of lung Mother Lung cancer Social History Housing: House Alcohol intake: current Alcohol intake frequency: a few times a month Patient Tobacco Use Status: Never used Tobacco e-Cigarette/Vaping Use: Never Used Second Hand Smoke Exposure: No Current occupational status: retired Cognitive needs: No Hearing needs: No Vision needs: No Physical Exam Vital Signs: BMI result Body Mass Index 30.9 Const Other: Well-nourished well-developed very friendly male awake alert and oriented x3 in no acute distress Neck Other: Cervical spine examination shows positive Spurling's test, mild discomfort with range of motion, mild bilateral paraspinal muscle tenderness Results Reviewed Results Reviewed: MRI of the patient's cervical spine shows multiple levels of degenerative disc disease, mild to moderate stenosis, no acute bony abnormalities Assessment & Plan Assessment & Plan (1) Neck pain, bilateral: Code(s): M54.2 - Cervicalgia Category: Medical Plan Mr. Mcqueen presents with intermittent neck discomfort due to cervical stenosis. I had a lengthy discussion with the patient regarding the treatment options. At this point the patient's symptoms are improving with continued activity modifications. He will follow up with me on an as-needed basis should his symptoms worsen in any way. Feel free to call me at any time should questions regarding his orthopedic management arise. I spent 22 minutes in reviewing the patient's records and imaging studies, seeing the patient and documenting in the medical record. Coding Level of Care Code Est Pt Level 3 (38838) Complex EM visit Add On G2211 Diagnoses Neck pain, bilateral M54.2
== END 2024-09-18 07:57 | disposition home or self-care (01) ==
LOC: HO.HOS 07:35
PROVIDERS: PCP Nurse Practitioner Family; Visit Provider Orthopaedic Surgery
DX: M54.2 Cervicalgia (principal)
CPT/HCPCS: 99213; G2211

== ENCOUNTER → 2024-09-18 07:34 | Outpatient (BNVA) | payer MEDICARE, SELFPAY | PROVIDERS: PCP Nurse Practitioner Family; Visit Provider Orthopaedic Surgery | DX: M54.2 Cervicalgia (principal) | CPT/HCPCS: 99212 ==

== ENCOUNTER 2024-10-15 06:07 | Outpatient (REF) | payer MEDICARE, SELFPAY ==
[2024-10-15 10:08] LABS: MANUAL DIFF FLAG NO
[2024-10-15 10:21] LABS: Hematocrit 33.5 % (42.0-52.0); Hemoglobin 10.9 g/dl (14.0-18.0); Imm Gran Abs Auto 0.04 X10*3/uL (0.00-0.03); Imm Gran Pct Auto 0.6 % (0.0-0.4); Lymphocytes Absolute Auto 1.5 X10*3/uL (1.2-4.9); Mean Corpuscular HGB Conc 32.5 g/dl (31.0-36.0); Mean Corpuscular Hemoglobin 30.2 pg (27.0-33.0); Mean Corpuscular Volume 92.8 fL (80.0-98.0); NRBC Abs Auto 0.000 X10*3/uL (0.0-0.012); NRBC Pct Auto 0.0 /100WBC (0.0-0.2); Platelet Count 275 X10*3/uL (160-400); Red Blood Count 3.61 X10*6/uL (4.60-5.80); White Blood Count 6.8 X10*3/uL (4.8-10.8)
[2024-10-15 10:27] LABS: Appearance Urine Clear; Glucose Urine UA Negative (Negative); PH 5.5 (5.0-9.0); Specific Gravity - Urine 1.025 (1.005-1.025)
[2024-10-15 10:53] LABS: Alanine Aminotransferase 22 U/L (0-40); Albumin Level 3.5 g/dL (3.5-5.0); Alkaline Phosphatase 85 U/L (39-117); Anion Gap 11 (12-20); Aspartate Amino Transferase 30 U/L (5-37); Blood Urea Nitrogen 25 mg/dL (9-16); Calcium 8.4 mg/dL (8.4-10.2); Carbon Dioxide 22 mmol/L (22-29); Chloride 114 mmol/L (96-108); Cholesterol 105 mg/dL (<200); Estimated Glomerular Filt Rate > 60; HDL Cholesterol 30 mg/dL (>40); Potassium 4.5 mmol/L (3.3-5.1); Sodium 142 mmol/L (135-145); Total Protein 6.1 g/dL (6.5-8.0); Triglycerides 48 mg/dL (<150)
== END 2024-10-15 06:08 | disposition home or self-care (01) ==
LOC: HO.HMGCLDS 06:07
PROVIDERS: PCP Nurse Practitioner Family; Visit Provider Nurse Practitioner Family
DX: E78.5 Hyperlipidemia, unspecified (principal); E03.9 Hypothyroidism, unspecified; D64.9 Anemia, unspecified
CPT/HCPCS: 36415; 80053; 80061; 81003; 84443; 85025

== ENCOUNTER → 2024-10-18 07:52 | Outpatient (REF) | payer MEDICARE, SELFPAY ==
--- NOTE | 2024-10-18 07:54 | CA_ITS ---
Transthoracic Echocardiogram Patient (Last, First, Middle): Iban Mcqueen F Gender: Male Date of : 1945 Age: 79 Procedure Date: 10/18/2024 Procedure Type: Transthoracic Echocardiogram Location: OP Height: 175.26 cm Weight: 89.36 kg BSA: 2.05 m2 Heart Rate: bpm BP: 112 / 68 mmHg Logistics Research Engineer: TO Referring MD: Ta Mcneill [facility] [employer] Fishing Vessel: Isaac Abarca MD Symptoms: R01.1 - Cardiac murmur, unspecified Study Quality: Fair, contrast ECG Rhythm: Sinus Conclusions: - 1. Normal LV ejection fraction 55-60% with grade 1 diastolic dysfunction 2. Mild aortic and mitral regurgitation 3. Mildly dilated ascending aorta at 3.7 cm 4. No gross pericardial effusion Findings Procedure Information Contrast agent, definity, is being given per protocol without apparent complications. Left Ventricle Normal left ventricular size, thickness, and systolic function. The visually estimated ejection fraction is between 55-60%. Spectral Doppler is indicative of an impaired relaxation filling pattern. E/E prime ratio is <8, consistent with normal filling pressures. Evidence suggests grade I (mild) diastolic dysfunction. Right Ventricle Normal right ventricular cavity size and systolic function. Atria The left atrium is likely dilated. There is no evidence of interatrial shunt. The right atrium is normal in size. Aortic Valve There is mild calcification of the aortic valve. The peak aortic velocity is 1.72 m/s with a calculated peak gradient of 12 mmHg. The mean gradient is 7 mmHg. There is mild aortic valve regurgitation. Mitral Valve Normal mitral valve structure and function. There is mild mitral valve regurgitation. There is no mitral valve stenosis. Pulmonic Valve The pulmonic valve is likely normal. Tricuspid Valve Likely normal tricuspid valve structure and function. Tricuspid regurgitation envelope is inadequate for calculation of right ventricular systolic pressure. Great Vessels The pulmonary artery was not well visualized. There is mild dilatation of the ascending aorta measuring 3.70 cm. Small plaque is seen in the sino tubular ridge. Venous The inferior vena cava is normal in size and collapses greater than 50% with inspiration. Pericardium/Pleural There is no evidence of pericardial effusion. Prior Study Comparison Changes noted compared to prior study dated: 04/08/2017. mildly dilated ascending aorta and mild aortic regurgitation noted Measurements 2D Linear Measurements IVSd: 1.01 0.6-0.9/0.6-1.0 cm LVIDd: 5.03 3.9-5.3/4.2-5.9 cm LVIDd Index: 2.45 2.4-3.2/2.2-3.1 cm/m2 LVIDs: 3.30 2.0-3.6 cm LVPWd: 0.92 0.7-1.1 cm LA Diam: 4.00 2.7-3.8/3.0-4.0 cm LAIDs Index: 1.95 1.5-2.3 cm/m2 LV Mass: 217.68 67-162/88-224 g LV Mass Index: 106.19 43-95/49-115 g/m2 LVOT Diam: 2.30 3.0+(-)1.3 cm 2D Systolic Function EF 4C: 60.60 >55% EF 2C: 58.40 >55% EF BiP: 57.60 >55% Mitral Valve MV Pk E: 0.42 MV PK A: 0.51 MV Decel Time: 380.00 E/A: 0.80 E'Lateral: 6.85 E'Medial: 5.33 E/E' Med: 7.90 E/E' Lat: 6.10 PHT: 111.00 MVA PHT: 1.98 Decel Stewart: 1.11 Aortic Valve AoV Pk Hal: 1.72 AoV Mn Hal: 1.23 AoV VTI: 0.37 AoV Pk Grad: 12.00 Aov Mn Grad: 7.00 MAHNAZ Cont.VTI: 2.11 LVOT LVOT Pk Hal: 0.84 LVOT Mn Hal: 0.59 LVOT VTI: 0.19 LVOT Pk Grad: 3.00 LVOT Mn Grad: 2.00 LVOT Diam: 2.30 LVOT Area: 4.15 Diastolic Function MV Pk E: 0.42 MV Pk A: 0.51 E/A: 0.80 E'Medial: 5.33 E/E' Med: 7.90 E' Laterial: 6.85 E/E' Lat: 6.10 Right Ventricle TAPSE (mm): 23.50 TVS' Hal: 12.80 Tricuspid Valve RA Press: 3.00 Great Vessels Aorta Sinus of Valsalva: 3.77 2.0-3.5 cm Ao Asc: 3.70 2.1-3.4 cm Updated in Other Vendor System with Status of Final Isaac Abarca MD electronically signed on 10/18/2024 4:01:05 PM with status of Final
--- OUTSIDE RECORDS SUMMARY | 2024-10-18 07:54 | XMS_ITS | Patient Health Record ---
Author Organization [facility] Address [address] [place] [address] Care Team Providers Care Packing And Stamping Machine Operator Name Role Phone EMMANUEL MEDINA [...] Problem Status W/U Status Risk Notes Problem [id number] Rectal bleeding (K62.5) Active confirmed Plan Of Treatment Future Test Test Name Order Date COLONOSCOPY 06/18/2011 COLONOSCOPY 06/02/2020 Insurance Providers Payer Name Payer Address Payer Phone Subscriber Number Group Number Insured Name Patient Relationship to Insured Coverage Start Date Coverage End Date MEDICARE OF [place] [address] [place] [address] [id number] BRITTANY QUIROS Self - patient is the insured [employer] ATTN CLAIMS [address] [place] [address] [phone] [id number] BRITTANY QUIROS Self - patient is the insured Medical (General) History Medical History History ICD Code elevated cholesterol anemia prostate cancer January 2018, radiation therapy Hypothyroidism Surgical History Surgery Date(Month/Year) tonsillectomy
== END ==
LOC: HO.CARD 07:52
PROVIDERS: PCP Nurse Practitioner Family; Visit Provider Nurse Practitioner Family
DX: R01.1 Cardiac murmur, unspecified (principal)
CPT/HCPCS: 93306; Q9957

== ENCOUNTER → 2024-10-18 07:54 | Outpatient (BNV) | payer MEDICARE, SELFPAY | PROVIDERS: PCP Nurse Practitioner Family; Visit Provider Internal Medicine Cardiovascular Disease | DX: I35.1 Nonrheumatic aortic (valve) insufficiency (principal); I34.0 Nonrheumatic mitral (valve) insufficiency; R01.1 Cardiac murmur, unspecified | CPT/HCPCS: 93306 ==